=== PATIENT | male | born 1955 | race Two or more races ===

== ENCOUNTER 2020-08-02 07:14 | Outpatient (REF) | payer OTHER, SELFPAY ==
[2020-08-02 07:51] LABS: MANUAL DIFF FLAG NO
[2020-08-02 07:55] LABS: Basophils Percent Auto 0.6 % (0-2); Eosinophils Absolute Auto 0.3 X10*3/uL (0.0-0.4); Eosinophils Percent Auto 4.9 % (0-4); Hematocrit 46.6 % (42-52); Hemoglobin 15.1 g/dl (14.0-18.0); Imm Gran Abs Auto 0.03 X10*3/uL (0.00-0.03); Imm Gran Pct Auto 0.5 % (0.0-0.4); Lymphocytes Absolute Auto 2.4 X10*3/uL (1.2-4.9); Lymphocytes Percent Auto 37.8 % (20-40); Mean Corpuscular HGB Conc 32.4 g/dl (31.0-36.0); Mean Corpuscular Hemoglobin 29.7 pg (27.0-33.0); Mean Corpuscular Volume 91.6 fL (80-98); Mean Platelet Volume 10.1 fL (9.4-12.4); Monocytes Absolute Auto 0.8 X10*3/uL (0.1-1.2); Monocytes Percent Auto 11.9 % (2-11); Neutrophils Absolute Auto 2.8 X10*3/uL (2.0-8.3); Neutrophils Percent Auto 44.3 % (45-73); Platelet Count 232 X10*3/uL (160-400); Red Blood Count 5.09 X10*6/uL (4.60-5.80); White Blood Count 6.3 X10*3/uL (4.8-10.8)
[2020-08-02 08:17] LABS: Alanine Aminotransferase 65 U/L (0-40); Albumin Level 4.6 g/dL (3.5-5.0); Alkaline Phosphatase 66 U/L (39-117); Aspartate Amino Transferase 36 U/L (5-37); Bilirubin Direct 0.2 mg/dL (0.0-0.5); Bilirubin Total 0.6 mg/dL (0.0-1.0); Cholesterol 155 mg/dL; HDL Cholesterol 36 mg/dL; LDL Cholesterol Calculated 92 mg/dl; Total Protein 7.2 g/dL (6.5-8.0); Triglycerides 137 mg/dL
[2020-08-02 13:45] LABS: Anion Gap 13 (12-20); Blood Urea Nitrogen 17 mg/dL (9-16); Carbon Dioxide 31 mmol/L (22-29); Chloride 101 mmol/L (96-108); Estimated Glomerular Filt Rate > 60; Glucose Fasting 99 mg/dL (60-99); Potassium 5.4 mmol/l (3.3-5.1); Sodium 140 mmol/L (135-145)
[2020-08-02 13:53] LABS: Calcium 9.1 mg/dL (8.4-10.2)
== END 2020-08-02 07:15 | disposition home or self-care (01) ==
LOC: HO.LAB 07:14
PROVIDERS: PCP Internal Medicine; Visit Provider Nurse Practitioner Family
DX: J00 Acute nasopharyngitis [common cold] (principal); K76.0 Fatty (change of) liver, not elsewhere classified; E78.00 Pure hypercholesterolemia, unspecified
CPT/HCPCS: 36415; 80048; 80061; 80076; 85025

== ENCOUNTER 2020-08-23 07:08 | Outpatient (REF) | payer OTHER, SELFPAY ==
[2020-08-23 07:27] LABS: MANUAL DIFF FLAG NO
[2020-08-23 07:30] LABS: Basophils Percent Auto 0.7 % (0-2); Eosinophils Absolute Auto 0.2 X10*3/uL (0.0-0.4); Hematocrit 45.4 % (42-52); Hemoglobin 15.2 g/dl (14.0-18.0); Imm Gran Abs Auto 0.03 X10*3/uL (0.00-0.03); Imm Gran Pct Auto 0.5 % (0.0-0.4); Lymphocytes Percent Auto 32.7 % (20-40); Mean Corpuscular HGB Conc 33.5 g/dl (31.0-36.0); Mean Corpuscular Hemoglobin 30.4 pg (27.0-33.0); Mean Corpuscular Volume 90.8 fL (80-98); Mean Platelet Volume 9.9 fL (9.4-12.4); Monocytes Absolute Auto 0.6 X10*3/uL (0.1-1.2); Monocytes Percent Auto 10.4 % (2-11); Neutrophils Absolute Auto 3.1 X10*3/uL (2.0-8.3); Neutrophils Percent Auto 51.7 % (45-73); Platelet Count 240 X10*3/uL (160-400); Red Cell Distribution Width 12.9 % (11.0-16.0)
[2020-08-23 07:51] LABS: Alanine Aminotransferase 61 U/L (0-40); Albumin Level 4.6 g/dL (3.5-5.0); Alkaline Phosphatase 64 U/L (39-117); Anion Gap 13 (12-20); Aspartate Amino Transferase 38 U/L (5-37); Bilirubin Direct 0.4 mg/dL (0.0-0.5); Bilirubin Total 1.1 mg/dL (0.0-1.0); Blood Urea Nitrogen 21 mg/dL (9-16); Calcium 8.9 mg/dL (8.4-10.2); Carbon Dioxide 28 mmol/L (22-29); Chloride 104 mmol/L (96-108); Estimated Glomerular Filt Rate > 60; Glucose Fasting 96 mg/dL (60-99); Potassium 4.2 mmol/l (3.3-5.1); Sodium 141 mmol/L (135-145); Total Protein 7.3 g/dL (6.5-8.0)
== END 2020-08-23 07:09 | disposition home or self-care (01) ==
LOC: HO.LAB 07:08
PROVIDERS: PCP Internal Medicine; Visit Provider Nurse Practitioner Family
DX: J00 Acute nasopharyngitis [common cold] (principal); E78.00 Pure hypercholesterolemia, unspecified; K76.0 Fatty (change of) liver, not elsewhere classified
CPT/HCPCS: 36415; 80048; 80076; 85025

== ENCOUNTER → 2020-10-16 11:41 | Outpatient (BNVA) | payer OTHER, SELFPAY | PROVIDERS: PCP Internal Medicine; Visit Provider Physician Assistant | DX: Z12.11 Encounter for screening for malignant neoplasm of colon (principal) | CPT/HCPCS: Q3014 ==

== ENCOUNTER 2020-12-11 08:04 | Day surgery (SDC) | payer OTHER, SELFPAY ==
[2020-12-05 10:05] VITALS: BMI 34.1
[2020-12-11 09:41] VITALS: BP 141/82; PULSE 55; RESP 16; TEMP 36.4; O2SAT 97
--- NOTE | 2020-12-11 09:54 | HO.ANESPROP2 ---
HPI - Anesthesia Eval Consult details Narrative: 65 year old male patient for colonoscopy PMFSH Active Problems Active Problems: All Active Problems (Updated 10/16/20 @ 12:29 by Adrienne yNe PA-C) Encounter for screening colonoscopy (Acute) Elevated LFTs (Acute) Lumbar degenerative disc disease (Acute) Insomnia (Acute) Obesity (BMI 30-39.9) (Acute) Fatty liver (Acute) High cholesterol (Acute) Past Medical History Medical History Elevated LFTs Fatty liver High cholesterol Insomnia Lumbar degenerative disc disease Obesity (BMI 30-39.9) Family History Family History Father No problems noted. Mother Uterine cancer Other Family history non-contributory Family history of problems with anesthesia: No Surgical History Surgical History H/O colonoscopy Hx of circumcision History of Problems with Anesthesia: No Social History Social History Household Members: Spouse Alcohol intake: current Alcohol intake frequency: a few times a month Smoking Status: Former smoker Advance Directives Information Provided: No Meds Allergies Allergy/AdvReac Type Severity Reaction Status Date / Time No Known Allergies Allergy Mild NKA Verified 09/10/20 11:32 Active Medications: Current Medications Generic Name Dose Route Start Last Admin Trade Name Freq PRN Reason Stop Dose Admin Lactated Ringer's 1,000 mls @ 100 mls/hr 12/11/20 10:00 Lr IVCONT .Q10H NICHO Exam Exam Date and Time: December 11, 2020 0954 Height,Weight and Vital Signs: Height 5 ft 7 in Weight 98.883 kg Last Vital Signs Temp 97.5 F 12/11/20 09:41 Pulse 55 12/11/20 09:41 Resp 16 12/11/20 09:41 BP 141/82 H 12/11/20 09:41 Pulse Ox 97 12/11/20 09:41 Airway Mallampati Class: II TM Dist: >3cm Neck ROM: Full Denture: Upper Loose/Missing/Broken Teeth: Yes (Bottom front) Heart: RRR Lungs: CTAB Assessment and Plan Assessment Anesthesia Assessment: Anesthesia Plan Discussed and Chart Reviewed Final Anesthetic Review NPO: Yes ASA Class: II Final Preanesthetic Review: No Changes in Pt Med Stat, Meds/Allgs Chart Reviewed, Consent Obtained/Reviewed and Anes Risks/Benef Reviewed Patient Risk: Low Procedure Risk: Low Assessment/Block/Sedation in SS: Assess/Block/Sedation-SS Anesthetic Plan Anesthetic Plan: MAC: Disposition: Standard PACU
[2020-12-11] MEDS: Lactated Ringers 1,000 ML 100 ML IVCONT (10:05)
--- NOTE | 2020-12-11 10:21 | PC.NURSE ---
Patient ate solid food yesterday until 11 am, Dr Hoff notified. Fleets enema administered 10:15 am, returns clear.
--- NOTE | 2020-12-11 10:40 | MHC.SHP ---
Pre-Procedural Eval Section B Chief Complaint: screening Relevant Family History (Specify if Yes): No Relevant Social History: None Present Medications: see Short Stay Collaborative assessment Medical History: Significant History (Elevated LFTs Fatty liver High cholesterol Insomnia Lumbar degenerative disc disease Obesity (BMI 30-39.9)) History of Previous Operations: No relevant previous surgery Allergies: Allergies Allergy/AdvReac Type Severity Reaction Status Date / Time No Known Allergies Allergy Mild NKA Verified 09/10/20 11:32 Review of Systems Sugical H&P ROS: Negative: Constitution, Cardiovascular, Respiratory, Neurological, Psychiatric, Hem-Onc, Allergic/Immunologic, Gastrointestinal, Genitourinary, Musculoskeletal, Integumentary, Endocrine and Eyes/Ears/Nose/Throat Exam Surgical H&P Exam: Normal: HEENT, Normal: Heart, Normal: Lungs, Normal: Extremities, Normal: Abdomen, Normal: Skin and Normal: Neurological Plan Diagnosis/Plan: Unchanged I have reviewed the history and physical and performed a pertinent physical examination on my patient. No changes have occurred unless specified.
--- NOTE | 2020-12-11 10:46 | PM.OP ---
Brief Operative Note Date of Service: 12/11/20 Pre-op diagnosis: colon screen Post-op diagnosis: same Procedure: see op note Surgeon: Сергей Hoff MD Anesthesia: MAC Estimated blood loss (mL): 0 Condition: stable Disposition: PACU
--- NOTE | 2020-12-11 10:47 | W.PM.OPN ---
Operative Note Operative Note Date of Service: 12/11/20 Narrative: Operative Information Procedure Description: Colonoscopy COLONOSCOPY Instrument: Olympus variable stiffness pediatric scope 190L Colonoscopy Monitoring: Vital signs and clinical assessment, continuous EKG monitoring, Pulse oximetry, Carbon Dioxide monitoring and blood pressure monitoring were done throughout the procedure. Colon withdrawal time was 11 minutes. Procedure: The patient was placed in the left lateral decubitis position and pre-procedure medications were administered. After a digital rectal examination of the ano-rectum, the video colonoscope was inserted into the rectum and advanced through the colon to the cecum/TI. The colonoscope was slowly withdrawn in a retrograde panoramic fashion and the colon mucosa was carefully examined including a retroflexed view of the rectum. Findings and interventions are described below. Procedure Difficulty: easy Findings: Terminal Ileum-not intubated Cecum: 6-8 mm sessile polyp removed with forceps,otherwise normal Ascending Colon: normal Transverse Colon -normal Descending Colon:normal Sigmoid Colon: scattered diverticulosis Rectum: Retroflexion with small to moderate sized internal hemorrhoids, grade II Anorectum - internal hemorrhoids seen at anal verge Colon preparation: Earlimart Bowel Preparation Scale Right colon; 3 Transverse colon: 3 Left colon; 2 (0 = Unprepared colon segment with mucosa not seen due to solid stool that cannot be cleared. 1 = Portion of mucosa of the colon segment seen, but other areas of the colon segment not well seen due to staining, residual stool and/or opaque liquid. 2 = Minor amount of residual staining, small fragments of stool and/or opaque liquid, but mucosa of colon segment seen well. 3 = Entire mucosa of colon segment seen well with no residual staining, small fragments of stool or opaque liquid) Impression and Post Procedure Diagnosis: polyp internal hemorrhoids diverticular disease Plan: High fiber diet leaflet Avoid straining at stool, epsom salts and sitz bath, anusol supps or cream Repeat Colonoscopy in 5-7 years if adenoma polyp, 10 yrs if benign or earlier if clinically indicated Above findings were reviewed with the patient and relevant handouts were provided if indicated.
[2020-12-11 11:17] VITALS: BP 107/78; PULSE 63; RESP 18; TEMP 36.8; O2SAT 99
[2020-12-11 11:34] VITALS: BP 116/75; PULSE 52; RESP 16; O2SAT 98
== END 2020-12-11 12:16 | disposition home or self-care (01) ==
PROVIDERS: PCP Internal Medicine; Visit Provider Internal Medicine Gastroenterology
PROC: 0DJD8ZZ Inspection of Lower Intestinal Tract, Via Natural or Artificial Opening Endoscopic (ICD-10-PCS; CPT 45378; principal; 2020-12-11 10:20)
DX: Z12.11 Encounter for screening for malignant neoplasm of colon (principal); K57.30 Diverticulosis of large intestine without perforation or abscess without bleeding; K63.5 Polyp of colon; K64.1 Second degree hemorrhoids; K76.0 Fatty (change of) liver, not elsewhere classified; Z79.899 Other long term (current) drug therapy; Z87.891 Personal history of nicotine dependence
CPT/HCPCS: 45380; 88305

== ENCOUNTER → 2021-01-01 09:55 | Outpatient (BNVA) | payer OTHER, SELFPAY | PROVIDERS: PCP Internal Medicine; Visit Provider Physician Assistant | DX: K64.9 Unspecified hemorrhoids (principal); K63.5 Polyp of colon | CPT/HCPCS: Q3014 ==

== ENCOUNTER 2021-03-14 07:18 | Outpatient (REF) | payer OTHER, SELFPAY ==
--- NOTE | ~2021-03-14 | XR_ITS ---
EXAMINATION: XR LUMBOSACRAL SPINE CLINICAL INFORMATION: Low back pain. COMPARISON: None TECHNIQUE: Three views of the lumbosacral spine. FINDINGS: There is maintained lumbar lordosis. The vertebral heights and alignment is normal. There is loss of L4-L5 disc height. Rest the disc heights are normal. No visible acute fracture, dislocation or lytic process seen. The paravertebral soft tissues are normal. XR/XR lumbar spine 2-3V IMPRESSION: Mild degenerative disc changes L5-S1 and L4-L5 disc levels.
[2021-03-14 08:47] LABS: Alanine Aminotransferase 68 U/L (0-40); Albumin Level 4.4 g/dL (3.5-5.0); Alkaline Phosphatase 67 U/L (39-117); Anion Gap 11 (12-20); Aspartate Amino Transferase 39 U/L (5-37); Bilirubin Direct 0.4 mg/dL (0.0-0.5); Bilirubin Total 1.2 mg/dL (0.0-1.0); Blood Urea Nitrogen 17 mg/dL (9-16); Calcium 9.1 mg/dL (8.4-10.2); Carbon Dioxide 29 mmol/L (22-29); Chloride 104 mmol/L (96-108); Estimated Glomerular Filt Rate > 60; Glucose Fasting 96 mg/dL (60-99); Potassium 4.4 mmol/L (3.3-5.1); Sodium 140 mmol/L (135-145)
== END 2021-03-14 07:19 | disposition home or self-care (01) ==
LOC: HO.XRAY 07:18
PROVIDERS: PCP Internal Medicine; Visit Provider Internal Medicine
DX: M54.5 Low back pain (principal); M51.36 Other intervertebral disc degeneration, lumbar region; K76.0 Fatty (change of) liver, not elsewhere classified; R79.89 Other specified abnormal findings of blood chemistry
CPT/HCPCS: 36415; 72100; 80048; 80053; 80076; 82248

== ENCOUNTER → 2021-04-07 14:48 | Outpatient (BNVA) | payer OTHER, SELFPAY | PROVIDERS: PCP Internal Medicine; Visit Provider Nurse Practitioner Family | DX: M51.36 Other intervertebral disc degeneration, lumbar region (principal) | CPT/HCPCS: 99202 ==

== ENCOUNTER 2021-04-23 13:02 | Outpatient (REF) | payer OTHER, SELFPAY ==
--- NOTE | ~2021-04-23 | MR_ITS ---
EXAMINATION: MR LUMBAR SPINE WITHOUT CONTRAST CLINICAL INFORMATION: Right leg radiculopathy and low back pain. COMPARISON: X-ray lumbar spine from 03/14/2021 TECHNIQUE: MRI of the lumbar spine was obtained using routine sequences without contrast. FINDINGS: VERTEBRAL BODIES AND PARASPINAL STRUCTURES: The marrow signal is within normal limits. There is a retrosubluxation and severe disc space narrowing with chronic fatty marrow degenerative endplate changes at the L5-S1 level. Slight retrosubluxation at the L4-L5 level also evident. There are no compression fractures or anterior subluxations. The paraspinal soft tissues and imaged bony pelvis appear normal. CONUS MEDULLARIS AND CAUDA EQUINA: Normal, terminating at the level of L1. No lower cord signal abnormality is seen. The cauda equina nerve roots are normal. SPINAL LEVELS: L1-L2 and L2-L3: Well-hydrated normal appearance of the discs without central canal stenosis or foraminal narrowing. L3-L4: Mild retrosubluxation and disc bulge with a broad-based left foraminal disc protrusion contributing to moderate encroachment without nerve root impingement. No central canal stenosis. L4-L5: Mild loss of disc height and shallow right paracentral disc protrusion mildly impressing upon the ventral thecal sac. Additional left foraminal/extraforaminal disc protrusion with an underlying annular fissure mildly impressing upon the left L4 nerve root with mild encroachment. Moderate right foraminal narrowing. No central canal stenosis. L5-S1: Retrosubluxation and severe loss of disc height with a diffuse disc bulge, endplate spurring, and facet arthropathy. No central canal stenosis. [id number] bilateral foraminal narrowing. MR/MR lumbar spine wo con IMPRESSION: Severe spondylosis at the L5-S1 level with [id number] bilateral foraminal narrowing. No central canal stenosis or focal disc protrusion. Left foraminal disc protrusion at the L3-L4 level with moderate encroachment but no visible nerve root impingement. Broad-based left foraminal/extraforaminal disc protrusion at the L4-L5 level mildly impressing upon the left L4 nerve root. Moderate right foraminal narrowing.
== END 2021-04-23 13:03 | disposition home or self-care (01) ==
LOC: HO.MRI 13:02
PROVIDERS: Visit Provider Nurse Practitioner Family
DX: M51.36 Other intervertebral disc degeneration, lumbar region (principal)
CPT/HCPCS: 72148

== ENCOUNTER → 2021-08-07 11:31 | Outpatient (BNVA) | payer OTHER, SELFPAY | PROVIDERS: PCP Internal Medicine; Visit Provider Nurse Practitioner Family | DX: M51.36 Other intervertebral disc degeneration, lumbar region (principal); M47.819 Spondylosis without myelopathy or radiculopathy, site unspecified | CPT/HCPCS: 99212 ==

== ENCOUNTER 2021-09-12 07:12 | Outpatient (REF) | payer OTHER, SELFPAY ==
[2021-09-12 07:20] LABS: MANUAL DIFF FLAG NO
[2021-09-12 09:38] LABS: Basophils Percent Auto 0.6 % (0-2); Eosinophils Absolute Auto 0.3 X10*3/uL (0.0-0.4); Eosinophils Percent Auto 4.2 % (0-4); Hematocrit 46.3 % (42.0-52.0); Hemoglobin 14.9 g/dl (14.0-18.0); Imm Gran Abs Auto 0.03 X10*3/uL (0.00-0.03); Imm Gran Pct Auto 0.5 % (0.0-0.4); Lymphocytes Absolute Auto 2.1 X10*3/uL (1.2-4.9); Lymphocytes Percent Auto 32.9 % (20-40); Mean Corpuscular HGB Conc 32.2 g/dl (31.0-36.0); Mean Corpuscular Hemoglobin 29.8 pg (27.0-33.0); Mean Corpuscular Volume 92.6 fL (80.0-98.0); Mean Platelet Volume 10.6 fL (9.4-12.4); Monocytes Absolute Auto 0.7 X10*3/uL (0.1-1.2); Monocytes Percent Auto 10.9 % (2-11); Neutrophils Absolute Auto 3.2 x10*3/uL (2.0-8.3); Neutrophils Percent Auto 50.9 % (45-73); Platelet Count 242 X10*3/uL (160-400); Red Cell Distribution Width 13.1 % (11.0-16.0); White Blood Count 6.2 X10*3/uL (4.8-10.8)
[2021-09-12 10:07] LABS: Alanine Aminotransferase 58 U/L (0-40); Albumin Level 4.6 g/dL (3.5-5.0); Alkaline Phosphatase 76 U/L (39-117); Anion Gap 15 (12-20); Aspartate Amino Transferase 35 U/L (5-37); Bilirubin Total 0.9 mg/dL (0.0-1.0); Blood Urea Nitrogen 18 mg/dL (9-16); Calcium 9.3 mg/dL (8.4-10.2); Carbon Dioxide 25 mmol/L (22-29); Chloride 104 mmol/L (96-108); Cholesterol 169 mg/dL; Estimated Glomerular Filt Rate > 60; Glucose Fasting 93 mg/dL (60-99); HDL Cholesterol 33 mg/dL; LDL Cholesterol Calculated 109 mg/dl; Potassium 4.1 mmol/L (3.3-5.1); Sodium 140 mmol/L (135-145); Total Protein 7.5 g/dL (6.5-8.0); Triglycerides 138 mg/dL
[2021-09-12 10:12] LABS: Prostate Specific Antigen 0.33 ng/mL (<0.05-4.0); Vitamin D 25-OH Total 27.3 ng/mL (>30)
[2021-09-12 11:16] LABS: Appearance Urine CLEAR; Color Urine YELLOW; Glucose Urine UA NEG (NEG); Leukocyte Esterase Urine NEG (NEG); Nitrite Urine NEG (NEG); Specific Gravity - Urine 1.025 (1.005-1.025); Urine Blood NEG (NEG); Urine Ketones NEG (NEG); Urine Protein TRACE MG/DL (NEG-TRACE)
[2021-09-16 14:47] LABS: Testosterone, Free 71.2 pg/mL (35.0-155.0); Testosterone, Total 584 ng/dL (250-1100)
== END 2021-09-12 07:13 | disposition home or self-care (01) ==
LOC: HO.LAB 07:12
PROVIDERS: PCP Internal Medicine; Visit Provider Internal Medicine
DX: Z00.00 Encounter for general adult medical examination without abnormal findings (principal); Z12.5 Encounter for screening for malignant neoplasm of prostate; I10 Essential (primary) hypertension; N40.0 Benign prostatic hyperplasia without lower urinary tract symptoms; E55.9 Vitamin D deficiency, unspecified; E78.00 Pure hypercholesterolemia, unspecified; N52.9 Male erectile dysfunction, unspecified
CPT/HCPCS: 36415; 80053; 80061; 81003; 82306; 84153; 84402; 84403; 84443; 85025

== ENCOUNTER → 2021-10-21 13:17 | Outpatient (BNVA) | payer OTHER, SELFPAY | PROVIDERS: PCP Internal Medicine; Visit Provider Nurse Practitioner Family ==

== ENCOUNTER 2021-11-10 08:26 | Emergency (ER) | payer OTHER, SELFPAY ==
[2021-11-10 08:33] VITALS: BP 150/89; PULSE 59; RESP 18; TEMP 36.6; O2SAT 98; BMI 32.8
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
== END 2021-11-10 10:28 | disposition home or self-care (01) ==
PROVIDERS: Emergency Provider Emergency Medicine Emergency Medical Services; PCP Internal Medicine
DX: S13.4XXA Sprain of ligaments of cervical spine, initial encounter (principal); S33.5XXA Sprain of ligaments of lumbar spine, initial encounter; V43.52XA Car driver injured in collision with other type car in traffic accident, initial encounter; Y93.89 Activity, other specified; Y92.415 Exit ramp or entrance ramp of street or highway as the place of occurrence of the external cause; Y99.9 Unspecified external cause status
CPT/HCPCS: 99283

== ENCOUNTER 2022-04-14 06:06 | Outpatient (REF) | payer OTHER, SELFPAY ==
--- NOTE | ~2022-04-14 | FL_ITS ---
INDICATION: Intraoperative fluoroscopy. FLUOROSCOPY: Fluoroscopy Time: 0.4 minutes Dose: 20.2 mGy Images saved: 3 FINDINGS: Multiple intraoperative fluoroscopic images are submitted during procedure involving the lumbar spine. Correlation with operative report. Evaluation is limited secondary to fluoroscopic technique. IMPRESSION: Intra-operative fluoroscopic imaging provided by radiology during procedure involving the lumbar spine. Please refer to operative note for further information.
== END 2022-04-14 06:07 | disposition home or self-care (01) ==
LOC: HO.RADIR 06:06
PROVIDERS: Visit Provider Internal Medicine
DX: M47.27 Other spondylosis with radiculopathy, lumbosacral region (principal)
CPT/HCPCS: 64483; J1100; Q9967

== ENCOUNTER → 2022-05-12 09:51 | Outpatient (BNVA) | payer OTHER, SELFPAY | PROVIDERS: PCP Internal Medicine; Visit Provider Nurse Practitioner Family | DX: M51.36 Other intervertebral disc degeneration, lumbar region (principal); M47.27 Other spondylosis with radiculopathy, lumbosacral region; M62.838 Other muscle spasm; G57.10 Meralgia paresthetica, unspecified lower limb | CPT/HCPCS: 99212 ==

== ENCOUNTER → 2022-08-16 10:18 | Outpatient (BNVA) | payer MEDICARE, MEDICAID, SELFPAY | PROVIDERS: PCP Internal Medicine; Visit Provider Nurse Practitioner Family | DX: G57.10 Meralgia paresthetica, unspecified lower limb (principal); M62.838 Other muscle spasm; M47.819 Spondylosis without myelopathy or radiculopathy, site unspecified; M51.36 Other intervertebral disc degeneration, lumbar region; E66.9 Obesity, unspecified; Z68.34 Body mass index [BMI] 34.0-34.9, adult | CPT/HCPCS: 99212 ==

== ENCOUNTER 2022-10-06 06:07 | Outpatient (REF) | payer MEDICARE, SELFPAY | END 2022-10-06 06:08 | disposition home or self-care (01) | LOC: CF 06:07 | PROVIDERS: Visit Provider Internal Medicine | DX: G57.10 Meralgia paresthetica, unspecified lower limb (principal) | CPT/HCPCS: 64447; J1040; J3301 ==

== ENCOUNTER → 2022-11-04 08:54 | Outpatient (BNVA) | payer MEDICARE, OTHER, SELFPAY | PROVIDERS: PCP Internal Medicine; Visit Provider Nurse Practitioner Family | DX: M51.36 Other intervertebral disc degeneration, lumbar region (principal); M62.838 Other muscle spasm; M54.16 Radiculopathy, lumbar region; G57.10 Meralgia paresthetica, unspecified lower limb | CPT/HCPCS: 99202 ==

== ENCOUNTER 2022-12-01 06:04 | Outpatient (REF) | payer MEDICARE, OTHER, SELFPAY ==
--- NOTE | ~2022-12-01 | FL_ITS ---
EXAMINATION: XR FLUOROSCOPY WITH IMAGES CLINICAL INFORMATION: Radiculopathy lumbar region. COMPARISON: 04/14/2022 TECHNIQUE: Fluoroscopy Supervised By: Dr. Parvez York. Fluoroscopy Time: 0.3 minutes. Cumulative Dose: 6.43 mGy. DAP: 0.663 Gycm2. Images: 3. FINDINGS: Imaging demonstrates a needle about the right side of what appears to be L4 just inferior to the pedicle. FL/FL guidance in treatment room IMPRESSION: Intraoperative fluoroscopy for pain management procedure.
== END 2022-12-01 06:05 | disposition home or self-care (01) ==
LOC: CF 06:04
PROVIDERS: Visit Provider Internal Medicine
DX: M54.16 Radiculopathy, lumbar region (principal)
CPT/HCPCS: 64483; J1100

== ENCOUNTER 2023-03-19 07:08 | Outpatient (REF) | payer MEDICARE, OTHER, SELFPAY ==
--- NOTE | ~2023-03-19 | XR_ITS ---
EXAMINATION: XR KNEE, RIGHT CLINICAL INFORMATION: Pain of 2 months' duration, without injury. COMPARISON: None available. TECHNIQUE: AP, lateral, tunnel, and sunrise views of the right knee. FINDINGS: Bony alignment and mineralization are normal. The lateral, medial and patellofemoral joint space are well-maintained. There is chondrocalcinosis. No fracture, dislocation or significant joint effusion is seen. This no foreign body. XR/XR knee RT 4V IMPRESSION: 1. No fracture, dislocation or significant right knee joint effusion is seen. 2. There is chondrocalcinosis, which can be associated with CPPD.
== END 2023-03-19 07:09 | disposition home or self-care (01) ==
LOC: HO.XRAY 07:08
PROVIDERS: PCP Internal Medicine; Visit Provider Internal Medicine
DX: M25.561 Pain in right knee (principal)
CPT/HCPCS: 73564

== ENCOUNTER 2023-09-20 09:54 | Outpatient (AMB) | payer MEDICARE, SELFPAY ==
[2023-09-20 10:03] VITALS: BP 134/82; PULSE 60; O2SAT 97; BMI 34.8
--- NOTE | 2023-09-20 10:04 | A.OFFVIS_ITS ---
Intake Vital Signs 09/20/23 10:03 Height 5 ft 7 in Weight 222 lb 8 oz BMI 34.8 BP 134/82 Blood Pressure Location Lt brachial Position Sitting Pulse 60 Pulse Source Pulse Oximeter Pulse Oximetry (%) 97 Oxygen Delivery Method Room Air Intake Visit Reasons: Kym [id number] Iuss Analyst Required: No Accompanied by: Self / Same As Patient Allergies No Known Allergies Allergy (Mild, Verified 01/25/24 10:49) NKA Medication List - Last Reconciled 09/20/23 by John Youngblood MD fluticasone propionate 50 mcg/actuation 2 sprays intranasal DAILY PRN 30 days Do you need a note to return to daycare/school/sports/work: No HPI [facility] G0439 HPI Details Patient comes in today for his Medicare Annual Wellness Exam and follow up visit States that he has been experiencing a recurrent tingling sensation over the anterior aspect of his right thigh for the past 4 months Notes that the symptoms tend to occur especially after he has been standing up for too long Notes that his left thigh is also starting to experience the same symptoms recently He denies any pain in his right hip or right knee lately Also relates that he has been sick twice in the past month, with increased cough and congestion, most recently about 2 weeks ago States that his respiratory symptoms have cleared up gradually since and he presently has no respiratory complaints - denies any cough and congestion or SOB at this time He still has recurrent headaches - states that he ran out of his Rx recently He denies any dizziness; denies any fever or sore throat Denies any chest pain No nausea/vomiting, no abdominal pain No change in bowel habits noted He needs his Fluticasone nasal spray Rx refilled ------- IPPE/AWV: c/o of Annual Wellness Visit, subsequent visit. Medical / Social History Reviewed Past Medical History Yes . [place] of Care / Care Team list updated Yes . Surgical/Hospitalization History Yes . Current Medications (including OTC and supplements) Yes . Family History Yes . Tobacco Control form Yes . AUDIT-C (Alcohol use) form Yes . Illicit drug use in Social History Yes . Current diagnosis of depression? No Appropriate PHQ2/PHQ9 completed Yes . Data entered by Customer Services Coordinator and reviewed by provider Home Safety Throw rugs? No Grab bars? No Raised toilet seats? No Working smoke detectors? Yes Working carbon monoxide detectors? Yes Data entered by Customer Services Coordinator and reviewed by provider Activities of Daily Living (ADLs) Difficulty bathing or showering? No Difficulty dressing? No Difficulty using the toilet? No Difficulty getting in and out of bed? No Difficulty walking? No Receives help from another person with any of the above tasks? No Instrumental Activities of Daily Living (IADLs) Uses the telephone without help Gets to places out of walking distance without help Goes shopping for groceries without help Prepares own meals without help Does own minor home maintenance without help Does own laundry without help Does own housework without help Manages own money without help Currently takes medications? Yes Takes medication without help End-of-Life Planning Discussed advance directive Yes Advance directive on file Discussed wishes expressed in advance directive agreed to following patient's wishes Fall Risk: Fall History Have you had any falls with injury in the past year? No . Have you had two or more falls in the past year? No . Fall Risk Assessment: No falls in the past year . HRA filled out by the patient, reviewed by Provider and scanned. [facility] Medical History Vitamin D deficiency Mixed hyperlipidemia Paresthesia of both lower extremities GERD without esophagitis Erectile dysfunction Hemorrhoids Elevated LFTs Lumbar degenerative disc disease Insomnia Obesity (BMI 30-39.9) Fatty liver Surgical History H/O colonoscopy Hx of circumcision Family History Father No problems noted. 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 Cognitive needs: No Hearing needs: No Vision needs: No Questionnaire Medicare Wellness Checkup [age] What gender do you identify with?: male During the past 4 weeks, how much have you been bothered by emotional problems such as feeling anxious, depressed, irritable, sad or downhearted, and blue?: not at all During the past 4 weeks, has your physical & emotional health limited your social activities with family, friends, neighbors, or groups?: not at all During the past 4 weeks, how much bodily pain have you generally had?: very mild pain During the past 4 weeks, was someone available to help you if you needed & wanted help?: no, not at all During the past 4 weeks, what was the hardest physical activity you could do for at least 2 minutes?: moderate Can you get to places out of walking distance without help? (For eg., can you travel alone on buses, taxis or drive your car?): Yes Can you go shopping for groceries or clothes without someone's help?: Yes Can you prepare your own meals?: Yes Can you do your housework without help?: Yes Because of any health problems, do you need the help of another person with your personal care needs such as eating, bathing, dressing or getting around the house?: No Can you handle your own money without help?: Yes During the past 4 weeks, how would you rate your health in general?: very good During the past 4 weeks how have things been going for you?: pretty well Are you having difficulties driving your car?: no Do you always fasten your seat belt when you are in a car?: yes, usually During past 4 weeks, have you been bothered by the following: never: Falling or dizzy when standing up, Sexual problems?, Trouble eating well? and Problems using the telephone? and seldom: Teeth or denture problems? and Tiredness or fatigue? Have you fallen 2 or more times in the past year?: No Are you afraid of falling?: No Are you a smoker?: no During the past 4 weeks, how many drinks of wine, beer, or other alcoholic beverages did you have?: 1 drink or less per week Do you exercise for about 20 minutes 3 or more times a week?: no, I usually do not exercise this much Have you been given information to help with the following?: yes: Keeping track of your medications? and no: Hazards in your house that might hurt you? How often do you have trouble taking medicines the way you have been told to take them?: I always take medicine as prescribed How confident are you that you can control & manage most of your health problems?: very confident What is your race?: or origin or descent Mini Mental State Exam (MMSE) Orientation What is the (year) (season) (date) (day) (month)?: year, season, date, day and month Where are we (state) (county) (town or city) (hospital) (floor)?: state, county, town or city, hospital/clinic and floor Score Score: 10 Activity of Daily Living Bathing - sponge bath, tub bath or shower: receives no assistance (gets in/out by self, if usual bathing means Dressing - getting clothes from closets & drawers, including inner/outer garments & fasteners.: gets clothes & gets completely dressed without help Toileting - going to the 'toilet room' for urine/bowel elimination & cleaning self/arranging clothes: goes to toilet room, cleans self, arranges clothes without help Transfer: moves in & out of bed and chair without help (may use support object) Continence: controls urination/bowel movements completely by self Feeding: feeds self without help Total Score: 0 Information obtained from: patient Using telephone: independent Traveling: independent Shopping: independent Preparing meals: independent Housework: independent Taking medicine: independent Managing money: independent PHQ-9 Over the last 2 weeks, how often have you been bothered by any of the following problems? 1. Little interest or pleasure in doing things: not at all 2. Feeling down, depressed, or hopeless: not at all 3. Trouble falling or staying asleep, or sleeping too much: several days 4. Feeling tired or having little energy: several days 5. Poor appetite or overeating: not at all 6. Feeling bad about yourself - or that you are a failure or have let yourself o r your family down: not at all 7. Trouble concentrating on things, such as reading the newspaper or watching television: not at all 8. Moving or speaking so slowly that other people could have noticed. Or the opposite - being so fidgety or restless that you have been moving around a lot more than usual: not at all 9. Thoughts that you would be better off or of hurting yourself in some way: not at all Total score: 2 Depression Screening Interpretation: Negative Depression Screening Done: Yes 11492 - PHQ-9 Billing: Yes Source: Developed by Drs. Tyree Zhu, Yumiko Holden, Victor Hugo millan nd colleagues, with an educational ignacia from [employer]. PHQ-2/PHQ-9 PHQ-2 Over the last 2 weeks, how often have you been bothered by any of the following problems? 1. Little interest or pleasure in doing things: not at all 2. Feeling down, depressed, or hopeless: not at all Total score: 0 If score is 3 or greater, continue 3. Trouble falling or staying asleep, or sleeping too much: several days 4. Feeling tired or having little energy: several days 5. Poor appetite or overeating: not at all 6. Feeling bad about yourself - or that you are a failure or have let yourself or your family down: not at all 7. Trouble concentrating on things, such as reading the newspaper or watching television: not at all 8. Moving or speaking so slowly that other people could have noticed. Or the opposite - being so fidgety or restless that you have been moving around a lot more than usual: not at all 9. Thoughts that you would be better off or of hurting yourself in some way: not at all Total score: 2 0-4 None-Minimal, 5-9 Mild, 10-14 Moderate, 15-19 Moderately Severe, 20-27 Severe Source: Developed by Drs. Tyree Zhu, Yumiko Holden, Victor Hugo Rodas and colleagues, with an educational ignacia from [employer]. Thrive Questionnaire Date Thrive assessed: 09/20/23 I am a: Patient What is your living situation today?: I have a steady place to live Within the past 12 months, did the food you bought not last and you didn't have the money to get more?: Never true Within the past 12 months, did you worry whether your food would run out before you got money to buy more?: Never true Do you have trouble paying for medicines?: No Do you have trouble getting transportation to medical appointments?: No Do you have trouble paying your heating and electricity bill?: No Do you have trouble taking care of your child, family member or friend?: No Do you have trouble with day-to-day activities such as bathing, preparing meals, shopping, managing finances, etc.?: No Are you currently unemployed and looking for a job?: No Are you interested in more education?: No Please select the resources that you would like help with: None Currently or been in a relationship where the following occur: no concerns r eported YARIEL-7 AMB Questionnaire YARIEL-7 Date YARIEL - 7 assessed: 09/20/23 Feeling nervous, anxious, or on edge: 0 = Not at all Not being able to stop or control worryin = Not at all Worrying too much about different things: 0 = Not at all Trouble relaxin = Not at all Being so restless that it is hard to sit still: 0 = Not at all Becoming easily annoyed or irritable: 0 = Not at all Feeling afraid as if something awful might happen: 0 = Not at all Total YARIEL-7 score (0-4 normal; 5-9 mild; 10-14 moderate; 15-21 severe): 0 Source: Developed by Drs. Tyree Zhu, Yumiko Holden, Victor Hugo Rodas and colleagues, with an educational ignacia from [employer]. Review of Systems Const Denies chills, Reports difficulty sleeping, Denies fatigue, Denies fever(s) and Reports headache(s) (on and off, most over the frontal area) ENT Denies dysphagia, Denies dizziness, Denies otalgia, Reports headache(s) (on and off, most over the frontal area), Denies neck pain, Denies odynophagia and Denies sore throat Card Denies chest pain, Denies palpitations and Denies dyspnea Resp Denies cough, Denies dyspnea and Denies wheezing GI Denies abdominal pain, Denies constipation, Denies dysphagia, Denies heartburn, Denies diarrhea, Denies nausea, Denies odynophagia and Denies vomiting Reports erectile dysfunction, Denies dysuria, Denies nocturia and Denies urinary frequency Musc Reports back pain (over the lower back - chronic), Denies arthralgias, Denies neck pain and Reports tingling (on and off over the anterior aspect of the right thigh) Skin/Breast Denies rash Neuro Denies dizziness, Reports headache(s) (on and off, most over the frontal area) and Reports tingling (on and off over the anterior aspect of the right thigh) Endo Denies fatigue and Denies palpitations Aller/Immun Denies wheezing Physical Exam Vital Signs: Last Vital Signs Pulse 60 09/20/23 10:03 BP 134/82 09/20/23 10:03 Pulse Ox 97 09/20/23 10:03 Oxygen Delivery Method Room Air 09/20/23 10:03 BMI result Body Mass Index 34.8 IPPE/AWV: Balance Romberg Yes . Tandem walk Yes . Walk and Turn Yes . Rise from sit to stand Yes . Vision Corrective lens No Vision screen pass Hearing Whisper test pass . Urinary incont. no. EKG Not clinically necessary. Const General: no acute distress and alert Orientation/consciousness: patient oriented x3 HEENT Ears: TM's normal bilaterally and EAC's normal Throat: Yes posterior oropharynx normal and Yes tonsils normal Neck Neck: Yes no lymphadenopathy and Yes supple Thyroid: Thyroid normal Lymphatic: no lymphadenopathy noted Resp Auscultation: clear to auscultation bilaterally, no crackles, no rales and no wheezes Cardio Rate: regular rate Rhythm: regular rhythm Heart sounds: no murmurs GI Palpation (GI): Soft to palpation, nontender and no guarding Auscultation: normal bowel sounds General: Yes no CVA tenderness Back/Spine/Pelvis Back: no CVA tenderness Thoracic/Lumbar Spine: lumbar spinal tenderness (chronic) Skin Rashes: no rashes Neuro General: patient oriented x3 Cognition (Neuro): normal cognition Extrem General: Yes no clubbing, cyanosis or edema Assessment & Plan Assessment & Plan (1) Medicare annual wellness visit, subsequent: Code(s): Z00.00 - Encounter for general adult medical examination without abnormal findings Plan: HRA form discussed and completed with patient - form will be scanned into patient's chart (2) Headache: Code(s): R51.9 - Headache, unspecified Qualifiers: Headache chronicity pattern: unspecified pattern Headache type: unspecified Intractability: not intractable Qualified Code(s): R51.9 - Headache, unspecified Plan: Unclear etiology at this time - may be tension/muscle contraction headaches or due to allergies, elevated BP or issues with his vision Will send him for some labs JESSI for further evaluation (3) Elevated LFTs: Code(s): R79.89 - Other specified abnormal findings of blood chemistry Plan: He is reminded that his liver enzymes were slightly elevated on his labs done last year - were probably related to his weight Will recheck his LFTs and labs JESSI for follow-up Patient is again advised to avoid alcohol and any Tylenol-containing medications as much as possible (4) GERD without esophagitis: Code(s): K21.9 - Gastro-esophageal reflux disease without esophagitis Plan: Reinforced dietary restrictions We started him on a trial of Omeprazole 20 mg QD - states that he took it for a while but did not feel any different and he self-discontinued the Rx a few m onths ago If symptoms persist, will consider referring him to GI for further evaluation (5) Lumbar degenerative disc disease: Code(s): M51.36 - Other intervertebral disc degeneration, lumbar region Plan: Reinforced activity and weight lifting restrictions Lumbar spine MRI done in April 2021 revealed (+) severe spondylosis at the L5-S1 level with [id number] bilateral foraminal narrowing. No central canal stenosis or focal disc protrusion was seen at this level. (+) left foraminal disc protrusion at the L3-L4 level with moderate encroachment but no visible nerve root impingement. Broad-based left foraminal/extraforaminal disc protrusion at the L4-L5 level mildly impressing upon the left L4 nerve root. Moderate right foraminal narrowing. Follow up with pain management as scheduled - states that his low back pain have been adequately managed so nixon (6) Paresthesia of both lower extremities: Code(s): R20.2 - Paresthesia of skin Plan: Advised that this is likley meralgia paresthetica and weight loss and wearing looser clothings can help with his symptoms Will start him on a trial of Gabapentin 100 mg BID (7) Allergic rhinitis: Code(s): J30.9 - Allergic rhinitis, unspecified Qualifiers: Allergic rhinitis trigger: unspecified Allergic rhinitis seasonality: unspecified Qualified Code(s): J30.9 - Allergic rhinitis, unspecified Plan: Continue Fluticasone 50 mcg nasal spray QD PRN - Rx refilled (8) Insomnia: Code(s): G47.00 - Insomnia, unspecified Qualifiers: Insomnia type: unspecified Qualified Code(s): G47.00 - Insomnia, unspecified Plan: Sleep hygiene reinforced Was started on Trazodone 50 mg daily at bedtime previously but patient states that they did not help and he quit taking it after a while Thinks that his trouble sleeping may be mostly due to his low back pain and also some anxiety but does not wish to take anything for anxiety at this time (9) Obesity (BMI 30-39.9): Code(s): E66.9 - Obesity, unspecified Plan: Reinforced diet/exercise as tolerated/lose weight Plan Follow up in 4 months Orders: Orders Complete Blood Count Auto Diff 09/24/23 I10 - Essential (primary) hypertension, R20.2 - Paresthesia of skin Comprehensive [place]. Panel Fast 09/24/23 E78.00 - Pure hypercholesterolemia, unspecified, R20.2 - Paresthesia of skin TSH reflex Free T4 09/24/23 E78.00 - Pure hypercholesterolemia, unspecified, R20.2 - Paresthesia of skin Vitamin B12 and Folate 09/24/23 E53.8 - Deficiency of other specified B group vitamins, R20.2 - Paresthesia of skin Prostate Specific Antigen 09/24/23 N40.0 - Benign prostatic hyperplasia without lower urinary tract symptoms Lipid Panel 09/24/23 E78.00 - Pure hypercholesterolemia, unspecified, R20.2 - Paresthesia of skin Magnesium 09/24/23 E83.42 - Hypomagnesemia, R20.2 - Paresthesia of skin UA CC w/rflx Micro + Cult 09/24/23 R30.0 - Dysuria, R20.2 - Paresthesia of skin Vitamin D 25-OH Total 09/24/23 E55.9 - Vitamin D deficiency, unspecified, R20.2 - Paresthesia of skin Erythrocyte Sedimentation Rate 09/24/23 M79.7 - Fibromyalgia, R20.2 - Paresthesia of skin C Reactive Protein 09/24/23 R20.2 - Paresthesia of skin Medications: New gabapentin 100 mg PO BID 60 caps 3RF 30 days Changed From fluticasone propionate 50 mcg/actuation administer into each nostril at bedtime 2 sprays intranasal DAILY 30 days PRN 16 grams 5RF allergy symptoms To fluticasone propionate 50 mcg/actuation administer into each nostril at bedtime 2 sprays intranasal DAILY PRN 16 grams 5RF allergy symptoms 30 days Quality Reporting (2019) Depression/Bipolar (159/160/161/177) PHQ-9: Total score: 2 Coding Level of Care Code Medicare Subsequent (G0439) Est Pt Level 4 (19312) Diagnoses Medicare annual wellness visit, subsequent Z00.00 Nonintractable headache, unspecified chronicity pattern, unspecified headache type R51.9 Headache chronicity pattern: unspecified pattern Headache type: unspecified Intractability: not intractable Elevated LFTs R79.89 GERD without esophagitis K21.9 Lumbar degenerative disc disease M51.36 Paresthesia of both lower extremities R20.2 Allergic rhinitis, unspecified seasonality, unspecified trigger J30.9 Allergic rhinitis trigger: unspecified Allergic rhinitis seasonality: unspecified Insomnia, unspecified type G47.00 Insomnia type: unspecified Obesity (BMI 30-39.9) E66.9
== END 2023-09-20 11:03 | disposition home or self-care (01) ==
PROVIDERS: PCP Internal Medicine; Visit Provider Internal Medicine
DX: Z00.00 Encounter for general adult medical examination without abnormal findings (principal); R51.9 Headache, unspecified; R79.89 Other specified abnormal findings of blood chemistry; K21.9 Gastro-esophageal reflux disease without esophagitis; M51.36 Other intervertebral disc degeneration, lumbar region; R20.2 Paresthesia of skin; J30.9 Allergic rhinitis, unspecified; G47.00 Insomnia, unspecified; E66.9 Obesity, unspecified
CPT/HCPCS: 99214; G0439

== ENCOUNTER 2023-09-24 07:43 | Outpatient (REF) | payer MEDICARE, OTHER, SELFPAY ==
[2023-09-24 08:33] LABS: MANUAL DIFF FLAG NO
[2023-09-24 08:54] LABS: Basophils Absolute Auto 0.1 X10*3/uL (0.0-0.2); Basophils Percent Auto 0.8 % (0-2); Eosinophils Absolute Auto 0.2 X10*3/uL (0.0-0.4); Hematocrit 45.4 % (42.0-52.0); Hemoglobin 15.2 g/dl (14.0-18.0); Imm Gran Abs Auto 0.04 X10*3/uL (0.00-0.03); Imm Gran Pct Auto 0.7 % (0.0-0.4); Lymphocytes Absolute Auto 1.9 X10*3/uL (1.2-4.9); Lymphocytes Percent Auto 31.6 % (20-40); Mean Corpuscular HGB Conc 33.5 g/dl (31.0-36.0); Mean Corpuscular Hemoglobin 29.9 pg (27.0-33.0); Mean Corpuscular Volume 89.2 fL (80.0-98.0); Mean Platelet Volume 10.1 fL (9.4-12.4); Monocytes Absolute Auto 0.6 X10*3/uL (0.1-1.2); Monocytes Percent Auto 10.1 % (2-11); Neutrophils Absolute Auto 3.2 x10*3/uL (2.0-8.3); Neutrophils Percent Auto 52.8 % (45-73); Platelet Count 225 X10*3/uL (160-400); Red Blood Count 5.09 X10*6/uL (4.60-5.80); Red Cell Distribution Width 13.1 % (11.0-16.0)
[2023-09-24 09:32] LABS: Alanine Aminotransferase 74 U/L (0-40); Albumin Level 4.4 g/dL (3.5-5.0); Alkaline Phosphatase 67 U/L (39-117); Anion Gap 12 (12-20); Aspartate Amino Transferase 46 U/L (5-37); Blood Urea Nitrogen 16 mg/dL (9-16); C Reactive Protein 0.15 mg/dL (< or = 0.50); Calcium 9.4 mg/dL (8.4-10.2); Carbon Dioxide 29 mmol/L (22-29); Chloride 105 mmol/L (96-108); Cholesterol 168 mg/dL (<200); Erythrocyte Sedimentation Rate 1 MM/HR (0-15); Estimated Glomerular Filt Rate > 60; Glucose Fasting 97 mg/dL (60-99); HDL Cholesterol 32 mg/dL (>40); LDL Cholesterol Calculated 101 mg/dL (<100); Magnesium 1.8 mg/dL (1.6-2.6); Potassium 4.2 mmol/L (3.3-5.1); Sodium 142 mmol/L (135-145); Total Protein 7.4 g/dL (6.5-8.0); Triglycerides 177 mg/dL (<150)
[2023-09-24 09:50] LABS: TSH reflex Free T4 2.06 uIU/mL (0.32-4.0); Vitamin D 25-OH Total 29.3 ng/mL (>30)
[2023-09-24 09:56] LABS: Prostate Specific Antigen 0.49 ng/mL (<0.05-4.0); Vitamin B12 512 pg/mL (200-900)
== END 2023-09-24 07:44 | disposition home or self-care (01) ==
LOC: HO.LAB 07:43
PROVIDERS: PCP Internal Medicine; Visit Provider Internal Medicine
DX: E78.00 Pure hypercholesterolemia, unspecified (principal); R20.2 Paresthesia of skin; N40.0 Benign prostatic hyperplasia without lower urinary tract symptoms; E83.42 Hypomagnesemia; I10 Essential (primary) hypertension; E53.8 Deficiency of other specified B group vitamins; E55.9 Vitamin D deficiency, unspecified; M79.7 Fibromyalgia; R30.0 Dysuria; Z12.5 Encounter for screening for malignant neoplasm of prostate
CPT/HCPCS: 36415; 80053; 80061; 82306; 82607; 82746; 83735; 84153; 84443; 85025; 85652; 86140

== ENCOUNTER 2023-11-01 09:44 | Outpatient (AMB) | payer MEDICARE, SELFPAY ==
[2023-11-01 09:45] VITALS: BP 122/86; PULSE 61; O2SAT 97; BMI 35.2
--- NOTE | 2023-11-01 09:45 | MHC.PC.OV ---
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 Required: No Accompanied by: Self / Same As Patient Allergies No Known Allergies Allergy (Mild, Verified 11/01/23 10:13) NKA Medication List - Last Reconciled 11/01/23 by John Youngblood MD fluticasone propionate 50 mcg/actuation 2 sprays intranasal DAILY PRN 30 days gabapentin 100 mg PO BID 30 days Tobacco use date assessed: 11/01/23 Fall risk assessment: No Falls in past year Last assessed Fall Risk: 11/01/23 Dental Screening Dental Screen Date: 11/01/23 Did you have a dental visit in the last 12 months?: No Did you have a dental problem in the last 6 months where you did not have access to dental care?: No Was dental information given to patient?: No HPI Vision problems HPI Details Patient comes in today complaining of problems with his vision States that he's had issues with blurred vision in both eyes since he was a child and that all attempts by the numerous eye doctors that he has seen so far have not been successful in correcting his vision but he does not really know what is the reason for his eye symptoms States that 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 1. Little interest or pleasure in doing things: not at all 2. Feeling down, depressed, or hopeless: not at all 3. Trouble falling or staying asleep, or sleeping too much: several days 4. Feeling tired or having little energy: several days 5. Poor appetite or overeating: not at all 6. Feeling bad about yourself - or that you are a failure or have let yourself or your family down: not at all 7. Trouble concentrating on things, such as reading the newspaper or watching television: not at all 8. Moving or speaking so slowly that other people could have noticed. Or the opposite - being so fidgety or restless that you have been moving around a lot more than usual: not at all 9. Thoughts that you would be better off or of hurting yourself in some way: not at all Total score: 2 Depression Screening Interpretation: Negative Depression Screening Done: Yes 31935 - PHQ-9 Billing: Yes Source: Developed by Drs. Tyree Zhu, Yumiko Holden, Victor Hugo Rodas and colleagues, with an educational ignacia from [employer]. Thrive Questionnaire Date Thrive assessed: 11/01/23 I am a: Patient What is your living situation today?: I have a steady place to live Within the past 12 months, did the food you bought not last and you didn't have the money to get more?: Never true Within the past 12 months, did you worry whether your food would run out before you got money to buy more?: Never true Do you have trouble paying for medicines?: No Do you have trouble getting transportation to medical appointments?: No Do you have trouble paying your heating and electricity bill?: No Do you have trouble taking care of your child, family member or friend?: No Do you have trouble with day-to-day activities such as bathing, preparing meals, shopping, managing finances, etc.?: No Are you currently unemployed and looking for a job?: No Are you interested in more education?: No Please select the resources that you would like help with: None Currently or been in a relationship where the following occur: no concerns reported THRIVE Score: 0 AUDIT C Alcohol Use Questionnaire (AUDIT-C) 1. How often do you have a drink containing alcohol?: Monthly or less 2. How many drinks containing alcohol do you have on a typical day when you are drinking?: 1 or 2 3. How often do you have six or more drinks on one occasion?: Never Total Score: 1 Score Reviewed/Action Taken: Yes YARIEL-7 AMB Questionnaire YARIEL-7 Date YARIEL - 7 assessed: 11/01/23 Feeling nervous, anxious, or on edge: 0 = Not at all Not being able to stop or control worryin = Not at all Worrying too much about different things: 0 = Not at all Trouble relaxin = Not at all Being so restless that it is hard to sit still: 0 = Not at all Becoming easily annoyed or irritable: 0 = Not at all Feeling afraid as if something awful might happen: 0 = Not at all Total YARIEL-7 score (0-4 normal; 5-9 mild; 10-14 moderate; 15-21 severe): 0 Source: Developed by Drs. Tyree Zhu, Yumiko Holden, Victor Hugo Rodas and colleagues, with an educational ignacia from [employer]. Review of Systems Const Denies chills, Denies fatigue, Denies fever(s) and Reports headache(s) (recurrent lately, mostly over the frontal area) Eyes Reports blurry vision (bilateral; chronic) and Denies eye pain ENT Denies dysphagia, Denies dizziness, Reports headache(s) (recurrent lately, mostly over the frontal area), Denies neck pain, Denies odynophagia and Denies sore throat Card Denies chest pain, Denies palpitations and Denies dyspnea Resp Denies cough and Denies dyspnea GI Denies abdominal pain, Denies constipation, Denies dysphagia, Denies heartburn, Denies diarrhea, Denies nausea, Denies odynophagia and Denies vomiting Denies dysuria, Denies nocturia and Denies urinary frequency Musc Denies neck pain Skin/Breast Denies rash Neuro Denies dizziness and Reports headache(s) (recurrent lately, mostly over the frontal area) Endo Denies fatigue and Denies palpitations Physical exam (Primary Care) Vital Signs: Last Vital Signs Pulse 61 11/01/23 09:45 BP 122/86 11/01/23 09:45 Pulse Ox 97 11/01/23 09:45 Oxygen Delivery Method Room Air 11/01/23 09:45 BMI result Body Mass Index 35.2 Tobacco/Smoking Status: Tobacco use Status Tobacco use date assessed 11/01/23 11/01/23 09:51 Patient Tobacco Use Status Former Tobacco user 11/01/23 09:51 Tobacco use type Cigarette 11/01/23 09:51 e-Cigarette/Vaping Use Never Used 11/01/23 09:51 PHQ-9: PHQ-9 Score PHQ-9: Total score 2 11/01/23 10:14 Depression Screening Interpretation: Negative Thrive Assessment: Date of Thrive Assessment Date Thrive assessed 11/01/23 11/01/23 09:51 Currently or been in a relationship where the following occur: no concerns reported Const General: no acute distress and alert Eyes Conjunctivae: conjunctivae normal Pupils: Equal, round and reactive pupils present EOM: EOMs intact bilaterally Neck Neck: Yes no lymphadenopathy and Yes supple Resp Auscultation: clear to auscultation bilaterally, no rales and no wheezes Cardio Rate: regular rate Rhythm: regular rhythm Heart sounds: no murmurs GI Palpation (GI): Soft to palpation and nontender Auscultation: normal bowel sounds Skin Rashes: no rashes Neuro Cranial nerves: Yes Equal, round and reactive pupils present Extrem General: Yes no clubbing, cyanosis or edema Assessment and Plan Assessment & Plan (1) Blurry vision, bilateral: Code(s): H53.8 - Other visual disturbances Plan: Unclear etiology at this time - discussed possibilities include cataract, retinal issues, etc Will refer him to ophthalmology for further evaluation and management (2) Headache: Code(s): R51.9 - Headache, unspecified Qualifiers: Headache type: unspecified Headache chronicity pattern: unspecified pattern Intractability: not intractable Qualified Code(s): R51.9 - Headache, unspecified Plan: Advised that his recent headaches may be actually related to his vision problems and should improve or resolve once his eye symptoms are taken care of Plan Follow up as scheduled in January 2024 Orders: Referrals Ophthalmology Referral H53.8 - Other visual disturbances Coding Level of Care Code Est Pt Level 3 (36598) Diagnoses Blurry vision, bilateral H53.8 Nonintractable headache, unspecified chronicity pattern, unspecified headache type R51.9 Headache type: unspecified Headache chronicity pattern: unspecified pattern Intractability: not intractable
== END 2023-11-01 10:19 | disposition home or self-care (01) ==
PROVIDERS: PCP Internal Medicine; Visit Provider Internal Medicine
DX: H53.8 Other visual disturbances (principal); R51.9 Headache, unspecified
CPT/HCPCS: 99213

== ENCOUNTER 2024-01-25 10:09 | Outpatient (AMB) | payer MEDICARE, SELFPAY ==
[2024-01-25 10:12] VITALS: BP 132/84; PULSE 59; O2SAT 97; BMI 35.2
--- NOTE | 2024-01-25 10:12 | MHC.PC.OV ---
Vital Signs 01/25/24 10:12 Height 5 ft 7 in Weight 225 lb BMI 35.2 BP 132/84 Blood Pressure Location Lt brachial Position Sitting Pulse 59 Pulse Source Pulse Oximeter Pulse Oximetry (%) 97 Oxygen Delivery Method Room Air Intake Visit Reasons: 4mth f/u Night Supervisor Required: No Allergies No Known Allergies Allergy (Mild, Verified 01/25/24 10:49) NKA Medication List - Last Reconciled 01/25/24 by John Youngblood MD No Known Home Meds Tobacco use date assessed: 01/25/24 Fall risk assessment: No Falls in past year Last assessed Fall Risk: 01/25/24 Dental Screening Dental Screen Date: 11/01/23 HPI 4mth f/u HPI Details Patient comes in today for his follow up visit States that he feels okay He still has on and off frontal headaches but states that they seem to be less intense since he started wearing his prescription eyeglasses, which have helped correct his vision He denies any dizziness Denies any chest pains, no increased SOB No nausea/vomiting, no abdominal pain No change in bowel habits noted Still has recurrent pain over his lower back - used to see pain management but has not been back to see them in over a year now He had right L-4/5 TFESI earlier last year, which he states have helped He was also taking Gabapentin previously but he stopped taking this recently as he noticed that his pharmacy was charging him to pay more that he felt the actual Rx was worth States that he has been managing his pain so far without any significant issues lately He would also like to know how he did on his labs done back in September 2023; has had no other labs done since [facility] Medical History Vitamin D deficiency Mixed hyperlipidemia Paresthesia of both lower extremities GERD without esophagitis Erectile dysfunction Hemorrhoids Elevated LFTs Lumbar degenerative disc disease Insomnia Obesity (BMI 30-39.9) Fatty liver Surgical History H/O colonoscopy Hx of circumcision Family History Father No problems noted. 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 1. Little interest or pleasure in doing things: not at all 2. Feeling down, depressed, or hopeless: not at all 3. Trouble falling or staying asleep, or sleeping too much: several days 4. Feeling tired or having little energy: several days 5. Poor appetite or overeating: not at all 6. Feeling bad about yourself - or that you are a failure or have let yourself or your family down: not at all 7. Trouble concentrating on things, such as reading the newspaper or watching television: not at all 8. Moving or speaking so slowly that other people could have noticed. Or the opposite - being so fidgety or restless that you have been moving around a lot more than usual: not at all 9. Thoughts that you would be better off or of hurting yourself in some way: not at all Total score: 2 Depression Screening Interpretation: Negative Depression Screening Done: Yes 31301 - PHQ-9 Billing: Yes Source: Developed by Drs. Tyree Zhu, Yumiko Holden, Victor Hugo Rodas and colleagues, with an educational ignacia from [employer]. Thrive Questionnaire Date Thrive assessed: 01/25/24 I am a: Patient What is your living situation today?: I have a steady place to live Within the past 12 months, did the food you bought not last and you didn't have the money to get more?: Never true Within the past 12 months, did you worry whether your food would run out before you got money to buy more?: Never true Do you have trouble paying for medicines?: No Do you have trouble getting transportation to medical appointments?: No Do you have trouble paying your heating and electricity bill?: No Do you have trouble taking care of your child, family member or friend?: No Do you have trouble with day-to-day activities such as bathing, preparing meals, shopping, managing finances, etc.?: No Are you currently unemployed and looking for a job?: No Are you interested in more education?: No Please select the resources that you would like help with: None Currently or been in a relationship where the following occur: no concerns reported THRIVE Score: 0 AUDIT C Alcohol Use Questionnaire (AUDIT-C) 1. How often do you have a drink containing alcohol?: Monthly or less 2. How many drinks containing alcohol do you have on a typical day when you are drinking?: 1 or 2 3. How often do you have six or more drinks on one occasion?: Never Total Score: 1 Score Reviewed/Action Taken: Yes YARIEL-7 AMB Questionnaire YARIEL-7 Date YARIEL - 7 assessed: 11/01/23 Source: Developed by Drs. Tyree Zhu, Yumiko Holden, Victor Hugo Rodas and colleagues, with an educational ignacia from [employer]. Review of Systems Const Denies chills, Denies fatigue, Denies fever(s) and Reports headache(s) (recurrent lately, mostly over the frontal area) ENT Denies dysphagia, Denies dizziness, Reports headache(s) (recurrent lately, mostly over the frontal area), Denies neck pain, Denies odynophagia and Denies sore throat Card Denies chest pain, Denies palpitations and Denies dyspnea Resp Denies cough and Denies dyspnea GI Denies abdominal pain, Denies constipation, Denies dysphagia, Denies heartburn, Denies diarrhea, Denies nausea, Denies odynophagia and Denies vomiting Denies dysuria, Denies nocturia and Denies urinary frequency Musc Reports back pain (chronic, over the lower back) and Denies neck pain Skin/Breast Denies rash Neuro Denies dizziness and Reports headache(s) (recurrent lately, mostly over the frontal area) Endo Denies fatigue and Denies palpitations Neeraj/Lymph Details: (+) recurrent swelling of both legs and feet often at the end of the day Physical exam (Primary Care) Vital Signs: Last Vital Signs Pulse 59 01/25/24 10:12 BP 132/84 01/25/24 10:12 Pulse Ox 97 01/25/24 10:12 Oxygen Delivery Method Room Air 01/25/24 10:12 BMI result Body Mass Index 35.2 Tobacco/Smoking Status: Tobacco use Status Tobacco use date assessed 01/25/24 01/25/24 10:13 Patient Tobacco Use Status Former Tobacco user 01/25/24 10:13 Tobacco use type Cigarette 01/25/24 10:13 e-Cigarette/Vaping Use Never Used 01/25/24 10:13 PHQ-9: PHQ-9 Score PHQ-9: Total score 2 01/25/24 10:19 Depression Screening Interpretation: Negative Thrive Assessment: Date of Thrive Assessment Date Thrive assessed 01/25/24 01/25/24 10:13 Currently or been in a relationship where the following occur: no concerns reported Const General: no acute distress and alert HENMT Ears: TM's normal bilaterally and EAC's normal Throat: Yes posterior oropharynx normal and Yes tonsils normal Neck Neck: Yes no lymphadenopathy and Yes supple Thyroid: Thyroid normal Resp Auscultation: clear to auscultation bilaterally, no rales and no wheezes Cardio Rate: regular rate Rhythm: regular rhythm Heart sounds: no murmurs GI Palpation (GI): Soft to palpation and nontender Auscultation: normal bowel sounds General: Yes no CVA tenderness Back/Spine/Pelvis Back: no CVA tenderness Thoracic/Lumbar Spine: lumbar spinal tenderness Skin Rashes: no rashes Extrem General: Yes no clubbing, cyanosis or edema (although he reports (+) swelling of his legs and feet at the end of the day) Results Reviewed Results Reviewed: Laboratory Tests 09/24/23 08:30 WBC 6.0 Hgb 15.2 Hct 45.4 Plt Count 225 ESR 1 Sodium 142 Potassium 4.2 Creatinine 1.01 Estimated GFR > 60 Fasting Glucose 97 Calcium 9.4 Magnesium 1.8 AST 46 H ALT 74 H Alkaline Phosphatase 67 C-Reactive Protein 0.15 Triglycerides 177 H Cholesterol 168 LDL Cholesterol, Calc 101 H HDL Cholesterol 32 L Prostate Specific Ag 0.49 Vitamin B12 512 25-OH Vitamin D Total 29.3 L TSH 2.06 Assessment and Plan Assessment & Plan (1) Lumbar degenerative disc disease: Code(s): M51.36 - Other intervertebral disc degeneration, lumbar region Plan: He has multilevel degenerative disc disease Lumbar spine MRI done in April 2021 revealed (+) severe L5-S1 spondylosis with [id number] bilateral foraminal narrowing; no central canal stenosis or focal disc protrusion were noted here. (+) left foraminal disc protrusion at the L3-L4 level with moderate encroachment but no visible nerve root impingement. There is a broad-based left foraminal/extraforaminal disc protrusion at the L4-L5 level mildly impressing upon the left L4 nerve root, with moderate right foraminal narrowing Reinforced activity and weight-lifting restrictions to avoid aggravating his back symptoms He was taking Gabapentin but he stopped taking Gabapentin recently as he states that he refused to pay more for something that he is being overcharged for He was also seeing pain management and had right L-4/5 TFESI earlier last year which he felt helped He has not seen pain management in over a year now and is advised to reach out to them to schedule a follow up appt with them JESSI (2) Elevated LFTs: Code(s): R79.89 - Other specified abnormal findings of blood chemistry Plan: Results of his labs done back in September 2023 reviewed and discussed with patient - advised that his LFTs are still elevated - are most likely due to hepatosteatosis and should improve with weight loss He should also avoid taking a lot of Tylenol or Tylenol-containing medications and also avoid alcohol, which he admits he drinks occasionally Will continue to monitor his LFTs regularly and consider getting an abdominal US for further evaluation if his LFTs remain elevated at his next follow up visit (3) Mixed hyperlipidemia: Code(s): E78.2 - Mixed hyperlipidemia Plan: His serum triglyceride level was slightly elevated at 177 mg/dl back in September 2023 Reinforced low cholesterol diet Will recheck his labs and fasting lipids in 6 months for follow up (4) Right knee pain: Code(s): M25.561 - Pain in right knee Qualifiers: Chronicity: unspecified Qualified Code(s): M25.561 - Pain in right knee Plan: X-rays of the knee done last year (March 2023) revealed (+) chondrocalcinosis, which can be associated with CPPD States that his right knee feels okay at present Will consider referring him to rheumatology for further evaluation and management (of possible CPPD) if his knee symptoms flare up again (5) Vitamin D deficiency: Code(s): E55.9 - Vitamin D deficiency, unspecified Plan: He is advised that his Vitamin D level was just slightly under the normal cut off value on his labs done back in September 2023 He should consider taking some OTC Vitamin D3 of at least 1000 units QD (6) Insomnia: Code(s): G47.00 - Insomnia, unspecified Qualifiers: Insomnia type: unspecified Qualified Code(s): G47.00 - Insomnia, unspecified Plan: Sleep hygiene reinforced Recalls taking OTC Melatonin up to 10 mg in the past with no relief He declines offer to start him on any Rx for sleep at this time - states that he will call for Rx if he needs it (7) Obesity (BMI 30-39.9): Code(s): E66.9 - Obesity, unspecified Plan: Reinforced diet/exercise as tolerated/lose weight Plan Follow up in 6 months Orders: Orders Comprehensive [place]. Panel Fast 6 Months E78.00 - Pure hypercholesterolemia, unspecified, R79.89 - Other specified abnormal findings of blood chemistry Lipid Panel 6 Months E78.00 - Pure hypercholesterolemia, unspecified, R79.89 - Other specified abnormal findings of blood chemistry TSH reflex Free T4 6 Months E78.00 - Pure hypercholesterolemia, unspecified, R79.89 - Other specified abnormal findings of blood chemistry Vitamin D 25-OH Total 6 Months E55.9 - Vitamin D deficiency, unspecified, R79.89 - Other specified abnormal findings of blood chemistry B Type Natriuretic Peptide 6 Months R60.9 - Edema, unspecified Complete Blood Count Auto Diff 6 Months D64.9 - Anemia, unspecified, R79.89 - Other specified abnormal findings of blood chemistry UA CC w/rflx Micro + Cult 6 Months R30.0 - Dysuria, R79.89 - Other specified abnormal findings of blood chemistry Coding Level of Care Code Est Pt Level 4 (17552) Diagnoses Lumbar degenerative disc disease M51.36 Elevated LFTs R79.89 Mixed hyperlipidemia E78.2 Right knee pain, unspecified chronicity M25.561 Chronicity: unspecified Vitamin D deficiency E55.9 Insomnia, unspecified type G47.00 Insomnia type: unspecified Obesity (BMI 30-39.9) E66.9
== END 2024-01-25 11:02 | disposition home or self-care (01) ==
PROVIDERS: PCP Internal Medicine; Visit Provider Internal Medicine
DX: M51.36 Other intervertebral disc degeneration, lumbar region (principal); R79.89 Other specified abnormal findings of blood chemistry; E78.2 Mixed hyperlipidemia; M25.561 Pain in right knee; E55.9 Vitamin D deficiency, unspecified; G47.00 Insomnia, unspecified; E66.9 Obesity, unspecified
CPT/HCPCS: 99214

== ENCOUNTER 2024-07-21 07:02 | Outpatient (REF) | payer MEDICARE, SELFPAY ==
[2024-07-21 07:15] LABS: MANUAL DIFF FLAG NO
[2024-07-21 07:21] LABS: Basophils Absolute Auto 0.1 X10*3/uL (0.0-0.2); Basophils Percent Auto 0.7 % (0-2); Eosinophils Absolute Auto 0.3 X10*3/uL (0.0-0.4); Eosinophils Percent Auto 4.6 % (0-4); Hematocrit 46.8 % (42.0-52.0); Hemoglobin 15.7 g/dl (14.0-18.0); Imm Gran Abs Auto 0.05 X10*3/uL (0.00-0.03); Imm Gran Pct Auto 0.7 % (0.0-0.4); Lymphocytes Absolute Auto 2.2 X10*3/uL (1.2-4.9); Lymphocytes Percent Auto 32.4 % (20-40); Mean Corpuscular HGB Conc 33.5 g/dl (31.0-36.0); Mean Corpuscular Hemoglobin 30.4 pg (27.0-33.0); Mean Corpuscular Volume 90.5 fL (80.0-98.0); Mean Platelet Volume 9.6 fL (9.4-12.4); Monocytes Absolute Auto 0.6 X10*3/uL (0.1-1.2); Monocytes Percent Auto 9.2 % (2-11); Neutrophils Absolute Auto 3.5 x10*3/uL (2.0-8.3); Neutrophils Percent Auto 52.4 % (45-73); Platelet Count 231 X10*3/uL (160-400); Red Blood Count 5.17 X10*6/uL (4.60-5.80); Red Cell Distribution Width 13.1 % (11.0-16.0); White Blood Count 6.7 X10*3/uL (4.8-10.8)
[2024-07-21 07:29] LABS: Appearance Urine Clear; Color Urine Yellow; Glucose Urine UA Negative (Negative); Leukocyte Esterase Urine Negative (Negative); Nitrite Urine Negative (Negative); PH 5.5 (5.0-9.0); Urine Blood Negative (Negative); Urine Ketones Negative (Negative); Urine Protein Trace mg/dL (Neg-Trace)
[2024-07-21 07:41] LABS: Alanine Aminotransferase 79 U/L (0-40); Albumin Level 4.5 g/dL (3.5-5.0); Alkaline Phosphatase 72 U/L (39-117); Anion Gap 13 (12-20); Aspartate Amino Transferase 44 U/L (5-37); B Type Natriuretic Peptide 13 pg/mL (<100); Bilirubin Total 0.9 mg/dL (0.0-1.0); Blood Urea Nitrogen 17 mg/dL (9-16); Carbon Dioxide 25 mmol/L (22-29); Chloride 106 mmol/L (96-108); Cholesterol 164 mg/dL (<200); Estimated Glomerular Filt Rate > 60; Glucose Fasting 101 mg/dL (60-99); HDL Cholesterol 33 mg/dL (>40); LDL Cholesterol Calculated 96 mg/dL (<100); Potassium 3.9 mmol/L (3.3-5.1); Sodium 140 mmol/L (135-145); Total Protein 7.5 g/dL (6.5-8.0); Triglycerides 176 mg/dL (<150)
[2024-07-21 07:57] LABS: TSH reflex Free T4 3.28 uIU/mL (0.32-4.0); Vitamin D 25-OH Total 31.5 ng/mL (>30)
== END 2024-07-21 07:03 | disposition home or self-care (01) ==
LOC: HO.LAB 07:02
PROVIDERS: PCP Internal Medicine; Visit Provider Internal Medicine
DX: E78.00 Pure hypercholesterolemia, unspecified (principal); R60.9 Edema, unspecified; D64.9 Anemia, unspecified; R79.89 Other specified abnormal findings of blood chemistry; R30.0 Dysuria; E55.9 Vitamin D deficiency, unspecified
CPT/HCPCS: 36415; 80053; 80061; 81003; 82306; 83880; 84443; 85025

== ENCOUNTER 2024-07-30 10:43 | Outpatient (AMB) | payer MEDICARE, SELFPAY ==
[2024-07-30 10:52] VITALS: BP 126/82; PULSE 65; O2SAT 97; BMI 35.2
--- NOTE | 2024-07-30 10:52 | A.OFFPC_ITS ---
Vital Signs 07/30/24 10:52 Height 5 ft 7 in Weight 224 lb 8 oz BMI 35.2 BP 126/82 Blood Pressure Location Lt brachial Pulse 65 Pulse Source Pulse Oximeter Pulse Oximetry (%) 97 Oxygen Delivery Method Room Air Intake Visit Reasons: 6mof\u Small Engine Specialist Required: No Accompanied by: Self / Same As Patient Allergies No Known Allergies Allergy (Mild, Verified 07/30/24 11:31) NKA Medication List - Last Reconciled 07/30/24 by John Youngblood MD No Known Home Meds Tobacco use date assessed: 07/30/24 Last assessed Fall Risk: 07/30/24 Dental Screening Dental Screen Date: 07/30/24 HPI 6mof\u HPI Details Patient comes in today for his follow up visit States that he feels okay He denies any headaches or dizziness - states that his headaches have improved with correction of his vision with prescription eyeglasses Denies any chest pains, no increased SOB No nausea/vomiting, no abdominal pain No change in bowel habits noted He still has recurrent pain over his lower back - used to see pain management but has not been back to see them in over a year now He had right L-4/5 TFESI earlier last year, which he states have helped He also continues to experience recurrent pain in his right knee Adds that he has been experiencing urinary frequency and urgency as well as nocturia for a few months now and feels that his urinary symptoms have been getting worse lately He had his follow up labs done a couple of weekends ago - to discuss his results [facility] Medical History Benign prostatic hyperplasia (BPH) with urinary urgency Chondrocalcinosis Vitamin D deficiency Mixed hyperlipidemia Paresthesia of both lower extremities GERD without esophagitis Erectile dysfunction Hemorrhoids Elevated LFTs Lumbar degenerative disc disease Insomnia Obesity (BMI 30-39.9) Fatty liver Surgical History H/O colonoscopy Hx of circumcision Family History Father No problems noted. 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 1. Little interest or pleasure in doing things: not at all 2. Feeling down, depressed, or hopeless: not at all 3. Trouble falling or staying asleep, or sleeping too much: several days 4. Feeling tired or having little energy: several days 5. Poor appetite or overeating: not at all 6. Feeling bad about yourself - or that you are a failure or have let yourself or your family down: not at all 7. Trouble concentrating on things, such as reading the newspaper or watching television: not at all 8. Moving or speaking so slowly that other people could have noticed. Or the opposite - being so fidgety or restless that you have been moving around a lot more than usual: not at all 9. Thoughts that you would be better off or of hurting yourself in some way: not at all Total score: 2 Depression Screening Interpretation: Negative Depression Screening Done: Yes [id number] - PHQ-9 Billing: Yes Source: Developed by Drs. Tyree Zhu, Yumiko Holden, Victor Hugo Rodas and colleagues, with an educational ignacia from [employer]. Thrive Questionnaire Date Thrive assessed: 07/30/24 I am a: Patient What is your living situation today?: I have a steady place to live Within the past 12 months, did the food you bought not last and you didn't have the money to get more?: Never true Within the past 12 months, did you worry whether your food would run out before you got money to buy more?: Never true Do you have trouble paying for medicines?: No Do you have trouble getting transportation to medical appointments?: No Do you have trouble paying your heating and electricity bill?: No Do you have trouble taking care of your child, family member or friend?: No Do you have trouble with day-to-day activities such as bathing, preparing meals, shopping, managing finances, etc.?: No Are you currently unemployed and looking for a job?: No Are you interested in more education?: No Please select the resources that you would like help with: None Currently or been in a relationship where the following occur: No concerns reported THRIVE Score: 0 AUDIT C Alcohol Use Questionnaire (AUDIT-C) 1. How often do you have a drink containing alcohol?: Monthly or less 2. How many drinks containing alcohol do you have on a typical day when you are drinking?: 1 or 2 3. How often do you have six or more drinks on one occasion?: Less than monthly Total Score: 2 Score Reviewed/Action Taken: Yes YARIEL-7 AMB Questionnaire YARIEL-7 Date YARIEL - 7 assessed: 07/30/24 Feeling nervous, anxious, or on edge: 0 = Not at all Not being able to stop or control worryin = Not at all Worrying too much about different things: 0 = Not at all Trouble relaxin = Not at all Being so restless that it is hard to sit still: 0 = Not at all Becoming easily annoyed or irritable: 0 = Not at all Feeling afraid as if something awful might happen: 0 = Not at all Total YARIEL-7 score (0-4 normal; 5-9 mild; 10-14 moderate; 15-21 severe): 0 Source: Developed by Drs. Tyree Zhu, Yumiko Holden, Victor Hugo Rodas and colleagues, with an educational ignacia from [employer]. Review of Systems Const Denies chills, Denies fatigue, Denies fever(s) and Reports headache(s) (recurrent lately, mostly over the frontal area) ENT Denies dysphagia, Denies dizziness, Reports headache(s) (recurrent lately, mostly over the frontal area), Denies neck pain, Denies odynophagia and Denies sore throat Card Denies chest pain, Denies palpitations and Denies dyspnea Resp Denies cough and Denies dyspnea GI Denies abdominal pain, Denies constipation, Denies dysphagia, Denies heartburn, Denies diarrhea, Denies nausea, Denies odynophagia and Denies vomiting Reports difficulty urinating, Denies dysuria, Reports nocturia, Reports urinary frequency and Reports urinary urgency (at times) Musc Reports back pain (chronic, over the lower back) and Denies neck pain Skin/Breast Denies rash Neuro Denies dizziness and Reports headache(s) (recurrent lately, mostly over the frontal area) Endo Denies fatigue and Denies palpitations Neeraj/Lymph Details: (+) recurrent swelling of both legs and feet often at the end of the day Physical exam (Primary Care) Vital Signs: Last Vital Signs Pulse 65 07/30/24 10:52 BP 126/82 07/30/24 10:52 Pulse Ox 97 07/30/24 10:52 Oxygen Delivery Method Room Air 07/30/24 10:52 BMI result Body Mass Index 35.2 Tobacco/Smoking Status: Tobacco use Status Tobacco use date assessed 07/30/24 07/30/24 10:55 Patient Tobacco Use Status Former Tobacco user 07/30/24 10:55 Tobacco use type Cigarette 07/30/24 10:55 e-Cigarette/Vaping Use Never Used 07/30/24 10:55 PHQ-9: PHQ-9 Score PHQ-9: Total score 2 07/30/24 11:09 Depression Screening Interpretation: Negative Thrive Assessment: Date of Thrive Assessment Date Thrive assessed 07/30/24 07/30/24 10:55 Currently or been in a relationship where the following occur: No concerns reported Const General: no acute distress and alert HENMT Ears: TM's normal bilaterally and EAC's normal Throat: Yes posterior oropharynx normal and Yes tonsils normal Neck Neck: Yes no lymphadenopathy and Yes supple Thyroid: Thyroid normal Resp Auscultation: clear to auscultation bilaterally, no rales and no wheezes Cardio Rate: regular rate Rhythm: regular rhythm Heart sounds: no murmurs GI Palpation (GI): Soft to palpation and nontender Auscultation: normal bowel sounds General: Yes no CVA tenderness Back/Spine/Pelvis Back: no CVA tenderness Thoracic/Lumbar Spine: lumbar spinal tenderness Skin Rashes: no rashes Extrem General: Yes no clubbing, cyanosis or edema (although he reports (+) swelling of his legs and feet at the end of the day) Right lower extremity: knee Details: tenderness and swelling (mild, at times) Office Procedures Flu Questionnaire Does the patient have a severe egg allergy?: No Immunizations Fluarix Triv [id number] (PF) 45 mcg (15 mcg x 3)/0.5 mL IM syringe Performing Provider: John Youngblood MD [facility] Documented (not given) by: ALEXY Castellanos on 07/30/24 11:09 Reason Not Given: Received Previously Results Reviewed Results Reviewed: Laboratory Tests 07/21/24 07/21/24 07:10 07:13 WBC 6.7 Hgb 15.7 Hct 46.8 Plt Count 231 Sodium 140 Potassium 3.9 Creatinine 0.95 Estimated GFR > 60 Fasting Glucose 101 H Calcium 10.0 D AST 44 H ALT 79 H B-Natriuretic Peptide 13 Triglycerides 176 H Cholesterol 164 LDL Cholesterol, Calc 96 HDL Cholesterol 33 L 25-OH Vitamin D Total 31.5 TSH 3.28 Ur Specific [place] 1.020 Urine Protein Trace Urine Glucose (UA) Negative Urine Blood Negative Urine Nitrite Negative Ur Leukocyte Esterase Negative Coding Level of Care Code Est Pt Level 4 (30585) Diagnoses Degeneration of intervertebral disc of lumbar region with discogenic back pain M51.360 Disc-related pain type: discogenic back pain only Elevated LFTs R79.89 Mixed hyperlipidemia E78.2 Vitamin D deficiency E55.9 Chondrocalcinosis M11.20 Benign prostatic hyperplasia (BPH) with urinary urgency N40.1; R39.15 Insomnia, unspecified type G47.00 Insomnia type: unspecified Obesity (BMI 30-39.9) E66.9 Assessment & Plan Assessment & Plan (1) Lumbar degenerative disc disease: Code(s): M51.36 - Other intervertebral disc degeneration, lumbar region Category: Medical Qualifiers: Disc-related pain type: discogenic back pain only Qualified Code(s): M51.360 - Other intervertebral disc degeneration, lumbar region with discogenic back pain only Plan: He has multilevel degenerative disc disease Lumbar spine MRI done in April 2021 revealed (+) severe L5-S1 spondylosis with [id number] bilateral foraminal narrowing; no central canal stenosis or focal disc protrusion were noted here. (+) left foraminal disc protrusion at the L3-L4 level with moderate encroachment but no visible nerve root impingement. There is a broad-based left foraminal/extraforaminal disc protrusion at the L4-L5 level mildly impressing upon the left L4 nerve root, with moderate right foraminal narrowing Reinforced activity and weight-lifting restrictions to avoid aggravating his back symptoms He was taking Gabapentin but he stopped taking Gabapentin recently as he states that he refused to pay more for something that he is being overcharged for He was also seeing pain management and had right L-4/5 TFESI earlier last year which he felt helped He has not seen pain management in over a year now and was advised to reach out to them to schedule a follow up appt with them JESSI but he has not done so yet - have again reminded him to try contacting pain management to schedule an appointment and he is advised to call us if a referral is needed (2) Elevated LFTs: Code(s): R79.89 - Other specified abnormal findings of blood chemistry Category: Medical Plan: Results of his labs done a couple of weekends ago reviewed and discussed with patient He is advised that his LFTs are still elevated on his recent labs - these are most likely due to hepatosteatosis and should improve with weight loss Have reminded him thay he should also avoid taking a lot of Tylenol or Tylenol- containing medications and also avoid alcohol, which he admits he drinks o ccasionally Will send him for abdominal US for further evaluation Will continue to monitor his LFTs regularly; will check his liver fibrosis panel with his next labs in 6 months for further evaluation (3) Mixed hyperlipidemia: Code(s): E78.2 - Mixed hyperlipidemia Category: Medical Plan: Results of his labs done a couple of weekends ago reviewed and discussed with patient He is advised that his serum triglyceride level was still slightly elevated at 176 mg/dl on his recent labs Reinforced low cholesterol diet Will recheck his labs and fasting lipids in 6 months for follow up (4) Vitamin D deficiency: Code(s): E55.9 - Vitamin D deficiency, unspecified Category: Medical Plan: Continue OTC Vitamin D3 1000 units QD (5) Chondrocalcinosis: Code(s): M11.20 - Other chondrocalcinosis, unspecified site Category: Medical Plan: Right knee x-rays done in March 2023 revealed (+) findings of chondrocalcinosis Will consider referring him to rheumatology for further management if his knee symptoms get worse (6) Benign prostatic hyperplasia (BPH) with urinary urgency: Code(s): N40.1 - Benign prostatic hyperplasia with lower urinary tract symptoms; R39.15 - Urgency of urination Category: Medical Plan: Discussed that his recent urinary symptoms are most likely due to BPH His PSA level was normal at 0.49 when last checked in September 2023 Will start him for now on Tamsulosin 0.4 mg Q HS Will refer him to urology for further evaluation and management (7) Insomnia: Code(s): G47.00 - Insomnia, unspecified Category: Medical Qualifiers: Insomnia type: unspecified Qualified Code(s): G47.00 - Insomnia, unspecified Plan: Sleep hygiene reinforced Recalls taking OTC Melatonin up to 10 mg in the past with no relief He declines offer to start him on any Rx for sleep at this time - states that he will call for Rx if he needs it (8) Obesity (BMI 30-39.9): Code(s): E66.9 - Obesity, unspecified Category: Medical Plan: Reinforced diet/exercise as tolerated/lose weight Plan Follow up in 6 months Orders: Orders Influenza [id number] Immunization Today Z23 - Encounter for immunization US abdomen complete Today R79.89 - Other specified abnormal findings of blood chemistry Lipid Panel 6 Months E78.00 - Pure hypercholesterolemia, unspecified Complete Blood Count Auto Diff 6 Months D64.9 - Anemia, unspecified Comprehensive [place]. Panel Fast 6 Months E78.00 - Pure hypercholesterolemia, unspecified Liver Fibrosis Pnl 6 Months R79.89 - Other specified abnormal findings of blood chemistry Hepatitis A,B,C Profile 6 Months R79.89 - Other specified abnormal findings of blood chemistry Gamma Glutamyl Transpeptidase 6 Months R79.89 - Other specified abnormal findings of blood chemistry UA CC w/rflx Micro + Cult 6 Months R30.0 - Dysuria TSH reflex Free T4 6 Months E78.00 - Pure hypercholesterolemia, unspecified Vitamin D 25-OH Total 6 Months E55.9 - Vitamin D deficiency, unspecified Referrals Urology Referral N40.1 - Benign prostatic hyperplasia with lower urinary tract symptoms, R39.15 - Urgency of urination Medications: New tamsulosin 0.4 mg PO BEDTIME 90 days 90 caps 1RF N40.1 - Benign prostatic hyperplasia with lower urinary tract symptoms, R35.1 - Nocturia tamsulosin 0.4 mg PO BEDTIME 90 days 90 caps 1RF N40.1 - Benign prostatic hyperplasia with lower urinary tract symptoms, R35.1 - Nocturia
== END 2024-07-30 11:45 | disposition home or self-care (01) ==
PROVIDERS: PCP Internal Medicine; Visit Provider Internal Medicine
DX: E78.2 Mixed hyperlipidemia (principal); M51.360 Other intervertebral disc degeneration, lumbar region with discogenic back pain only; E66.812 Obesity, class 2; Z68.35 Body mass index [BMI] 35.0-35.9, adult; E55.9 Vitamin D deficiency, unspecified; M11.20 Other chondrocalcinosis, unspecified site; N40.1 Benign prostatic hyperplasia with lower urinary tract symptoms; R39.15 Urgency of urination; G47.00 Insomnia, unspecified

== ENCOUNTER → 2024-07-30 10:43 | Outpatient (BNVA) | payer MEDICARE, SELFPAY | PROVIDERS: PCP Internal Medicine; Visit Provider Internal Medicine | DX: M51.360 Other intervertebral disc degeneration, lumbar region with discogenic back pain only (principal); R79.89 Other specified abnormal findings of blood chemistry; E78.2 Mixed hyperlipidemia; E55.9 Vitamin D deficiency, unspecified; M11.20 Other chondrocalcinosis, unspecified site; N40.1 Benign prostatic hyperplasia with lower urinary tract symptoms; R39.15 Urgency of urination; G47.00 Insomnia, unspecified; E66.9 Obesity, unspecified; Z68.35 Body mass index [BMI] 35.0-35.9, adult; Z71.3 Dietary counseling and surveillance | CPT/HCPCS: 90471; 96127; 99212 ==

== ENCOUNTER 2024-10-24 07:47 | Outpatient (REF) | payer MEDICARE, SELFPAY ==
--- NOTE | ~2024-10-24 | US_ITS ---
EXAMINATION: US ABDOMEN HISTORY: R79.89 - Other specified abnormal findings of blood chemistry TECHNIQUE: Real-time grayscale ultrasound imaging of the abdomen was performed and images were reviewed. COMPARISON: There are no prior studies for comparison. FINDINGS: Liver: The liver is enlarged and demonstrates increased echotexture, consistent with steatosis. No focal mass or intrahepatic biliary ductal dilatation is identified. There is normal hepatopedal flow in the portal vein. Gallbladder and biliary tree: The gallbladder is unremarkable, without evidence of calculi, wall thickening, or pericholecystic fluid. There is no sonographic Gordon sign. The common bile duct is normal in caliber measuring 3 mm. Kidneys: The right kidney measures 11.9 cm in length. The left kidney measures 11.0 cm in length. The kidneys are unremarkable, without evidence of masses, hydronephrosis, or calculi. Pancreas: The pancreatic head, neck, and body are unremarkable. The pancreatic tail is obscured by bowel gas. Spleen: The spleen is normal in size and contour, measuring 11.0 cm in length. Abdominal aorta and inferior vena cava: The visualized portions of the abdominal aorta and inferior vena cava are normal in caliber. There is no free fluid in the abdomen. US/US abdomen complete IMPRESSION: Hepatomegaly and hepatic steatosis. Electronically signed by: Tyree Rolon MD 10/24/2024 03:20 PM [facility]
== END 2024-10-24 07:48 | disposition home or self-care (01) ==
LOC: HO.US 07:47
PROVIDERS: PCP Internal Medicine; Visit Provider Internal Medicine
DX: R79.89 Other specified abnormal findings of blood chemistry (principal)
CPT/HCPCS: 76700

== ENCOUNTER → 2024-10-24 07:49 | Outpatient (BNV) | payer MEDICARE, SELFPAY | PROVIDERS: PCP Internal Medicine; Visit Provider Radiology Diagnostic Radiology | DX: K76.0 Fatty (change of) liver, not elsewhere classified (principal); R16.0 Hepatomegaly, not elsewhere classified | CPT/HCPCS: 76700 ==

== ENCOUNTER 2024-11-08 13:42 | Outpatient (AMB) | payer MEDICARE, SELFPAY ==
--- NOTE | 2024-11-08 14:10 | A.OFFVIS_ITS ---
Intake Visit Reasons: BPH/urinary urgency Intake Note: New Patient presents for initial visit for urgency and frequency Urology Medications: tamsulosin Blood Thinner: none PVR: 31ml's Bag Sealer Required: No Accompanied by: Spouse Allergies No Known Allergies Allergy (Mild, Verified 11/08/24 17:10) NKA Medication List - Last Reconciled 11/08/24 by CHAVEZ Peng tamsulosin 0.8 mg (2 x 0.4 mg) PO BEDTIME 90 days HPI Comments Details: Octavio is a very pleasant 69-year-old male patient of Dr. Youngblood who is accompanied by his significant other at today's office visit. He has a past medical history of vitamin-D deficiency, hyperlipidemia, ED, hemorrhoids, elevated LFTs, lumbar degenerative disc disease, obesity, insomnia, and fatty liver. Presents to the office today as a new patient for ongoing lower urinary tract symptoms. In discussion with the patient today he reports having followed up with his PCP in discussing episodes of urinary urgency and frequency he had been experiencing at which time he was started on 0.4 mg of Flomax. He reports noting improvement in urinary urgency and frequency with Flomax however does continue to experience episodes however they are less frequent. In review of patient's chart it appears abdominal ultrasound was performed. 11/03 notes bilateral kidneys are unremarkable without evidence of masses, hydronephrosis, or renal calculi. In review of patient's chart it appears PSAs are as follows: 09/29 0.3, 10/01 0.5 We discussed potential causes for lower urinary tract symptoms patient was experiencing. BERNADETTE offered however deferred. We discussed obtaining PSA for further assessment evaluation. We discussed bladder triggers/irritants. In office urinalysis results reviewed with the patient today. PVR 31 mL. [facility] Medical History Benign prostatic hyperplasia (BPH) with urinary urgency Chondrocalcinosis Vitamin D deficiency Mixed hyperlipidemia Paresthesia of both lower extremities GERD without esophagitis Erectile dysfunction Hemorrhoids Elevated LFTs Lumbar degenerative disc disease Insomnia Obesity (BMI 30-39.9) Fatty liver Surgical History H/O colonoscopy Hx of circumcision Family History Father No problems noted. 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 Cognitive needs: No Hearing needs: No Vision needs: No Review of Systems Const Reports no additional complaints Eyes Reports no additional complaints ENT Reports no additional complaints Card Reports as per HPI Resp Reports no additional complaints GI Reports as per HPI Reports as per HPI Musc Reports as per HPI Neuro Reports as per HPI Psych Reports no additional complaints Endo Reports no additional complaints Neeraj/Lymph Reports no additional complaints Aller/Immun Reports no additional complaints Physical Exam Const General: cooperative, healthy appearing, comfortable, no acute distress, well developed, alert and awake Orientation/consciousness: patient oriented x3 Limitations: no limitations HEENT Head: Yes normal to inspection, Yes normocephalic and Yes atraumatic Ears: hearing grossly normal bilaterally Eyes General: appearance normal, both eyes and all related structures Neck Neck: Yes normal visual inspection and Yes trachea midline Chest Chest palpation & inspection: normal inspection of the chest Resp Effort & Inspection: normal respiratory effort and able to speak in complete sentences Cardio Rate: regular rate GI Inspection: Yes normal to inspection General: Yes no CVA tenderness Back/Spine/Pelvis Back: no CVA tenderness Skin General skin exam: no rashes or lesions noted Neuro General: patient oriented x3 Extrem General: Yes normal to inspection Psych Appearance: grossly normal and well kempt Mental Status: mental status grossly normal Speech and movement: Normal speech and movement present and Clear speech present Affect: normal affect Attitude: cooperative Thought process: Normal thought process present Thought content: Normal thought content present Insight: Fair insight present (Psych) Judgement: Fair judgement present (Psych) Office Procedures Post Void Residual Post Residual Void Post Void Residual (PVR): 31 [id number] Void Residual by ultrasound Results AMB Urinalysis, Automated UA Leukoctes 0 Vince/uL Last Edit by Rubi Jack on 11/08/24 14:24 UA Nitrite Last Edit by Rubi Jack on 11/08/24 14:24 UA Urobilinogen 0.2 mg/dL Last Edit by Rubi Jack on 11/08/24 14:24 UA Protein 15 mg/dL Last Edit by Tripvistozahra [email or web address] on 11/08/24 14:24 UA pH 6.0 Last Edit by Coskatajus on 11/08/24 14:24 UA Blood 0 Gabe/uL Last Edit by Coskatajus on 11/08/24 14:24 UA Specific [place] 1.020 Last Edit by Cangradeyeyo [email or web address] on 11/08/24 14:24 UA Ketone Last Edit by Cangradeyeyo [email or web address] on 11/08/24 14:24 UA Bilirubin 0 mg/dL Last Edit by Cangradeyeyo [email or web address] on 11/08/24 14:24 UA Glucose 0 mg/dL Last Edit by Cangradeyeyo [email or web address] on 11/08/24 14:24 Results Reviewed Results Reviewed: Laboratory Last Values Urine pH (Auto) 6.0 11/08/24 14:23 Specific [place] (Auto) 1.020 11/08/24 14:23 Urine Protein (Auto) 15 mg/dL 11/08/24 14:23 Glucose (UA)(Auto) 0 mg/dL 11/08/24 14:23 Urine Blood (Auto) 0 Gabe/uL 11/08/24 14:23 Urine Bilirubin (Auto) 0 mg/dL 11/08/24 14:23 Urine Urobilinogen (Auto) 0.2 mg/dL 11/08/24 14:23 Leukocyte Esterase (Auto) 0 Vince/uL 11/08/24 14:23 Assessment & Plan Assessment & Plan (1) Benign prostatic hyperplasia (BPH) with urinary urgency: Code(s): N40.1 - Benign prostatic hyperplasia with lower urinary tract symptoms; R39.15 - Urgency of urination Category: Medical (2) Lower urinary tract symptoms: Code(s): R39.9 - Unspecified symptoms and signs involving the genitourinary system Category: Medical (3) Urinary urgency: Code(s): R39.15 - Urgency of urination Category: Medical (4) Urinary frequency: Code(s): R35.0 - Frequency of micturition Category: Medical Plan In office urinalysis results reviewed with the patient today; as noted above. PVR 31 mL. Continue Flomax however will increase to 0.8 mg at bedtime. We discussed at length potential causes of lower urinary tract symptoms patient was experiencing as well as further workup in risks and benefits of these interventions. Will obtain PSA for further assessment evaluation. BERNADETTE offered however deferred. We discussed bladder triggers/irritants. Follow-up in 1-3 months with lab to be completed prior; or sooner with any issues, concerns, and or questions. Orders: Orders AMB Urinalysis Automated Today Z13.9 - Encounter for screening, unspecified AMB Post Void Residual by ultrasound Today N40.1 - Benign prostatic hyperplasia with lower urinary tract symptoms, R39.15 - Urgency of urination Prostate Specific Antigen Today N40.1 - Benign prostatic hyperplasia with lower urinary tract symptoms, R39.15 - Urgency of urination Medications: Changed From tamsulosin 0.4 mg PO BEDTIME 90 caps 1RF 90 days N40.1 - Benign prostatic hyperplasia with lower urinary tract symptoms, R35.1 - Nocturia To tamsulosin 0.8 mg (2 x 0.4 mg) PO BEDTIME 180 caps 1RF 90 days N40.1 - Benign prostatic hyperplasia with lower urinary tract symptoms, R35.1 - Nocturia Patient Instructions: The patient had an opportunity to ask questions regarding the treatment plan. All questions were answered. Physical exam, labs, and imaging were discussed and reviewed in detail. As well as risks, benefits, and discussion of treatment choices. No major barriers to understanding were identified. The patient expressed understanding and agreement with the above treatment plan. The patient was made aware they should contact our office by phone for worsening of their current condition, the appearance of new symptoms, or with any questions or concerns. Compliance is encouraged with any medications and follow up testing that is ordered. It is a privilege to be allowed the opportunity to participate in? your urological care.? Again, if you have any questions or concerns If you have any questions or concerns please do not hesitate to contact me. The office is [phone]. This note is constructed using voice recognition software. While every effort has been made to ensure accuracy anatomy professor errors may have been included. Yours sincerely, PAT Peng-GABRIELE Coding Level of Care Code New Pt Level 3 (78778) Diagnoses Benign prostatic hyperplasia (BPH) with urinary urgency N40.1; R39.15 Lower urinary tract symptoms R39.9 Urinary urgency R39.15 Urinary frequency R35.0 CPT Codes Post Residual Void - PVR CPT Code: 87882-Chly Void Residual by ultrasound ([id number])
--- OUTSIDE RECORDS SUMMARY | 2024-11-08 17:34 | XMS_ITS | Clinical Summary ---
Author Organization [facility] it Address [address] [place] [address] Care Team Providers Care Knitting Machine Operator Name Role Phone Todd Marcos MD Primary Care Provider [phone] Surgical History Surgery Date Site/Laterality Comments CIRCUMCISION, PRIMARY 2010 PROCEDURE: HISTORICAL CIRCUMCISION Medical History Medical History Date Comments Elevated ALT measurement 04/10/2018 DX:Elev ated ALT measurement Family History Medical History Relation Name Comments Hypertension Brother 1 No Known Problems Brother 2 No Known Problems Brother 3 No Known Problems Brother 4 No Known Problems Father Other cancer Mother not sure what t ype Heart attack Sister 1 No Known Problems Sister 2 Colon cancer Neg Hx Prostate cancer Neg Hx Relation Name Status Comments Brother 1 Alive Brother 2 Alive Brother 3 Alive Brother 4 Alive Father Mother Sister 1 Alive Sister 2 Alive Social History Tobacco Use Types Packs/Day Years Used Date Smoking Tobacco: Former Cigarettes Q uit: 10/10/2011 Smokeless Tobacco: Never Alcohol Use Standard Drinks/Week Comments Yes 3 (1 standard drink = 0.6 oz pur e alcohol) Sex and Gender Information Value Date Recorded Sex Assigned at Not on file Gender Identity Not on file Sexual Orientation Not on file Obstetrics History Plan of Treatment Health Maintenance Due Date Last Done Comments DTaP,Tdap,and Td Vaccines (1 - Tdap) 1976 Zoster Vaccines (1 of 2) 2007 Pneumococcal Vaccine: 65+ Ye ars (1 of 1 - PCV) 2022 COVID-19 Vaccine ( - 2023-2 5 season) 2024 Influenza Vaccine (#1) 2024 RSV Immunization Patients 60 + Years Old (1 - 1-dose 75+ series) 2032 HIB Vaccines Aged Out No longer eligi ble based on patient's age to complete this topic HPV Vaccines Aged Out No longer eligi ble based on patient's age to complete this topic Hepatitis A Vaccines Aged Out No long er eligible based on patient's age to complete this topic Hepatitis B Vaccines Aged Out No long er eligible based on patient's age to complete this topic IPV Vaccines Aged Out No longer eligi ble based on patient's age to complete this topic MMR Vaccines Aged Out No longer eligi ble based on patient's age to complete this topic Meningococcal ACWY Vaccine Aged Out N o longer eligible based on patient's age to complete this topic RSV Immunization Patients Un luis 20 months Aged Out No longer eligible b ased on patient's age to complete this topic Varicella Vaccines Aged Out No longer eligible based on patient's age to complete this topic Care Teams Knitting Machine Operator Relationship Specialty Start Date End Date Todd Marcos MD [address] [place] [id number] PCP - General Internal Medicine 06/23/15
== END 2024-11-08 14:53 | disposition home or self-care (01) ==
PROVIDERS: PCP Internal Medicine; Visit Provider Nurse Practitioner Family
DX: N40.1 Benign prostatic hyperplasia with lower urinary tract symptoms (principal); R39.15 Urgency of urination; R39.9 Unspecified symptoms and signs involving the genitourinary system; R35.0 Frequency of micturition; Z13.9 Encounter for screening, unspecified
CPT/HCPCS: 99203

== ENCOUNTER → 2024-11-08 13:42 | Outpatient (BNVA) | payer MEDICARE, SELFPAY | PROVIDERS: PCP Internal Medicine; Visit Provider Nurse Practitioner Family | DX: N40.1 Benign prostatic hyperplasia with lower urinary tract symptoms (principal); R39.15 Urgency of urination; R35.0 Frequency of micturition; R35.1 Nocturia; Z79.899 Other long term (current) drug therapy | CPT/HCPCS: 51798; 81003; 99202 ==

== ENCOUNTER 2025-01-28 09:45 | Outpatient (AMB) | payer MEDICARE, SELFPAY ==
--- NOTE | 2025-01-28 09:54 | A.OFFPC_ITS ---
Vital Signs 01/28/25 09:55 Height 5 ft 7 in Weight 227 lb 2 oz BMI 35.6 BP 118/78 Blood Pressure Location Lt brachial Position Sitting Pulse 68 Pulse Source Pulse Oximeter Pulse Oximetry (%) 98 Oxygen Delivery Method Room Air Intake Visit Reasons: chondrcalcinosis, hyperlipidemia, elevated LFTs Biological Scientist Required: No Accompanied by: Self / Same As Patient Allergies No Known Allergies Allergy (Mild, Verified 01/28/25 10:14) NKA Medication List - Last Reconciled 01/28/25 by John Youngblood MD tamsulosin 0.8 mg (2 x 0.4 mg) PO BEDTIME 90 days Tobacco use date assessed: 01/28/25 Fall risk assessment: No Falls in past year Last assessed Fall Risk: 01/28/25 Dental Screening Dental Screen Date: 01/28/25 Did you have a dental visit in the last 12 months?: Yes Did you have a dental problem in the last 6 months where you did not have access to dental care?: No Was dental information given to patient?: Patient has dentist HPI chondrcalcinosis, hyperlipidemia, elevated LFTs HPI Details Patient comes in today for his follow up visit States that he has been experiencing increased pain over his left elbow and on his left forearm on and off for over a month now and he has reportedly been taking a lot of OTC Advil lately just to get some relief from his pain He denies any recent injury or trauma to his left elbow or left arm Adds that he has been experiencing on and off episodes over the past few months wherein he feels like his heart is beating very fast Recalls that he would feel dizzy often when these episodes occur and there were times that he felt like he was going to pass out States that these tend to last for a few minutes after which they would gradually resolve/subside and that the last time he had these episodes was about a month ago He denies any headaches Denies any chest pains, no increased SOB although he states that he's had a recurrent non-productive cought for the past couple of months now Patient reports experiencing increased allergy symptoms lately; denies any sore throat or fever No nausea/vomiting, no abdominal pain No change in bowel habits noted He was not able to get his follow up labs done prior to his appointment today [facility] Medical History Benign prostatic hyperplasia (BPH) with urinary urgency Chondrocalcinosis Vitamin D deficiency Mixed hyperlipidemia Paresthesia of both lower extremities GERD without esophagitis Erectile dysfunction Hemorrhoids Elevated LFTs Lumbar degenerative disc disease Insomnia Obesity (BMI 30-39.9) Fatty liver Surgical History H/O colonoscopy Hx of circumcision Family History Father No problems noted. 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 1. Little interest or pleasure in doing things: not at all 2. Feeling down, depressed, or hopeless: not at all 3. Trouble falling or staying asleep, or sleeping too much: several days 4. Feeling tired or having little energy: several days 5. Poor appetite or overeating: not at all 6. Feeling bad about yourself - or that you are a failure or have let yourself or your family down: not at all 7. Trouble concentrating on things, such as reading the newspaper or watching television: not at all 8. Moving or speaking so slowly that other people could have noticed. Or the opposite - being so fidgety or restless that you have been moving around a lot more than usual: not at all 9. Thoughts that you would be better off or of hurting yourself in some way: not at all Total score: 2 Depression Screening Interpretation: Negative Depression Screening Done: Yes 87806 - PHQ-9 Billing: Yes Source: Developed by Drs. Tyree Zhu, Yumiko Holden, Victor Hugo Rodas and colleagues, with an educational ignacia from [employer]. Thrive Questionnaire Date Thrive assessed: 01/28/25 I am a: Patient What is your living situation today?: I have a steady place to live Within the past 12 months, did the food you bought not last and you didn't have the money to get more?: Never true Within the past 12 months, did you worry whether your food would run out before you got money to buy more?: Never true Do you have trouble paying for medicines?: No Do you have trouble getting transportation to medical appointments?: No Do you have trouble paying your heating and electricity bill?: No Do you have trouble taking care of your child, family member or friend?: No Do you have trouble with day-to-day activities such as bathing, preparing meals, shopping, managing finances, etc.?: No Are you currently unemployed and looking for a job?: No Are you interested in more education?: No Please select the resources that you would like help with: None Currently or been in a relationship where the following occur: No concerns reported THRIVE Score: 0 AUDIT C Alcohol Use Questionnaire (AUDIT-C) 1. How often do you have a drink containing alcohol?: Monthly or less 2. How many drinks containing alcohol do you have on a typical day when you are drinking?: 1 or 2 3. How often do you have six or more drinks on one occasion?: Less than monthly Total Score: 2 Score Reviewed/Action Taken: Yes YARIEL-7 AMB Questionnaire YARIEL-7 Date YARIEL - 7 assessed: 01/28/25 Feeling nervous, anxious, or on edge: 0 = Not at all Not being able to stop or control worryin = Not at all Worrying too much about different things: 0 = Not at all Trouble relaxin = Not at all Being so restless that it is hard to sit still: 0 = Not at all Becoming easily annoyed or irritable: 0 = Not at all Feeling afraid as if something awful might happen: 0 = Not at all Total YARIEL-7 score (0-4 normal; 5-9 mild; 10-14 moderate; 15-21 severe): 0 Source: Developed by Drs. Tyree Zhu, Victor Hugo Trejo and colleagues, with an educational ignacia from [employer]. Review of Systems Const Denies chills, Denies fatigue, Denies fever(s) and Denies headache(s) ENT Denies dysphagia, Reports dizziness (associated with sensations of rapid heart rate - see HPI for details), Denies otalgia, Denies headache(s), Denies neck pain, Denies odynophagia and Denies sore throat Card Denies chest pain, Reports rapid heart rate (on and off over the past few months - see HPI), Denies palpitations and Denies dyspnea Resp Denies chest congestion, Reports cough (recurrent, non-productive - ongoing for a couple of months) and Denies dyspnea GI Denies abdominal pain, Denies constipation, Denies dysphagia, Denies heartburn, Denies diarrhea, Denies nausea, Denies odynophagia and Denies vomiting Denies difficulty urinating, Denies dysuria, Reports nocturia, Reports urinary frequency and Reports urinary urgency (at times) Musc Reports back pain (chronic, over the lower back), Reports arthralgias (left elbow and left forearm and hand) and Denies neck pain Skin/Breast Denies rash Neuro Reports dizziness (associated with sensations of rapid heart rate - see HPI for details) and Denies headache(s) Endo Denies fatigue and Denies palpitations Neeraj/Lymph Details: (+) recurrent swelling of both legs and feet often at the end of the day Physical exam (Primary Care) Vital Signs: Last Vital Signs Pulse 68 01/28/25 09:55 BP 118/78 01/28/25 09:55 Pulse Ox 98 01/28/25 09:55 Oxygen Delivery Method Room Air 01/28/25 09:55 BMI result Body Mass Index 35.6 Tobacco/Smoking Status: Tobacco use Status Tobacco use date assessed 01/28/25 01/28/25 10:01 Patient Tobacco Use Status Former Tobacco user 01/28/25 10:01 Tobacco use type Cigarette 01/28/25 10:01 e-Cigarette/Vaping Use Never Used 01/28/25 10:01 PHQ-9: PHQ-9 Score PHQ-9: Total score 2 01/28/25 12:45 Depression Screening Interpretation: Negative Thrive Assessment: Date of Thrive Assessment Date Thrive assessed 01/28/25 01/28/25 10:01 Currently or been in a relationship where the following occur: No concerns reported Const General: no acute distress and alert HENMT Ears: TM's normal bilaterally and EAC's normal Throat: Yes posterior oropharynx normal and Yes tonsils normal Neck Neck: Yes supple and No lymphadenopathy Thyroid: Thyroid normal Resp Auscultation: clear to auscultation bilaterally, no rales and no wheezes Cardio Rate: regular rate Rhythm: regular rhythm Heart sounds: no murmurs GI Palpation (GI): Soft to palpation and nontender Auscultation: normal bowel sounds General: Yes no CVA tenderness Back/Spine/Pelvis Back: no CVA tenderness Thoracic/Lumbar Spine: lumbar spinal tenderness (mild) Skin Rashes: no rashes Extrem General: Yes no clubbing, cyanosis or edema (although he reports (+) swelling of his legs and feet at the end of the day) Left upper extremity: elbow/forearm Details: tenderness Location: of the olecranon, of the lateral epicondyle, of the proximal forearm and of the medial epicondyle; no swelling Right lower extremity: knee Details: tenderness and swelling (mild, at times) Coding Level of Care Code Est Pt Level 4 (65724) Complex EM visit Add On G2211 Diagnoses Cardiac arrhythmia, unspecified cardiac arrhythmia type I49.9 Arrhythmia type: unspecified cardiac arrhythmia Cough, unspecified type R05.9 Cough type: unspecified Left elbow pain M25.522 Allergic rhinitis, unspecified seasonality, unspecified trigger J30.9 Allergic rhinitis trigger: unspecified Allergic rhinitis seasonality: unspecified Degeneration of intervertebral disc of lumbar region with discogenic back pain M51.360 Disc-related pain type: discogenic back pain only Elevated LFTs R79.89 Mixed hyperlipidemia E78.2 Vitamin D deficiency E55.9 Chondrocalcinosis M11.20 Benign prostatic hyperplasia (BPH) with urinary urgency N40.1; R39.15 Insomnia, unspecified type G47.00 Insomnia type: unspecified Obesity (BMI 30-39.9) E66.9 Additional Codes PHQ-9 - 95131 - PHQ-9 Billing: Yes ([id number]) Assessment & Plan Assessment & Plan (1) Arrhythmia: Code(s): I49.9 - Cardiac arrhythmia, unspecified Category: Medical Qualifiers: Arrhythmia type: unspecified cardiac arrhythmia Qualified Code(s): I49.9 - Cardiac arrhythmia, unspecified Plan: Discussed with patient that his reported symptoms over the past few months may be due to atrial fibrillation (PAF) or other arrhythmias and these need to be further evaluated JESSI Have advised him to go and get his previously ordered labs done JESSI Will also send him for echocardiogram as well as a 14-day Holter monitor for further evaluation Will refer him as well to cardiology for further evaluation and management (2) Cough: Comment: non-productive Code(s): R05.9 - Cough, unspecified Category: Medical Qualifiers: Cough type: unspecified Qualified Code(s): R05.9 - Cough, unspecified Plan: Will send patient for chest x-rays for further evaluation but advised patient that this is likely due to his allergies (3) Left elbow pain: Code(s): M25.522 - Pain in left elbow Category: Medical Plan: Have advised patient that his left elbow pain is most likely due to tendinitis or bursitis Will send him for x-rays of the left elbow JESSI for further evaluation He is requesting for a cortisone injection into his elbow for relief if possible Will go ahead and refer him to orthopedics for consideration for cortisone injection into his left elbow if appropriate (4) Allergic rhinitis: Code(s): J30.9 - Allergic rhinitis, unspecified Category: Medical Qualifiers: Allergic rhinitis trigger: unspecified Allergic rhinitis seasonality: unspecified Qualified Code(s): J30.9 - Allergic rhinitis, unspecified Plan: Will start him on Cetirizine 10 mg QD PRN and Fluticasone 50 mcg nasal spray QD PRN (5) Lumbar degenerative disc disease: Code(s): M51.36 - Other intervertebral disc degeneration, lumbar region Category: Medical Qualifiers: Disc-related pain type: discogenic back pain only Qualified Code(s): M51.360 - Other intervertebral disc degeneration, lumbar region with discogenic back pain only Plan: He has multilevel degenerative disc disease Lumbar spine MRI done in April 2021 revealed (+) severe L5-S1 spondylosis with [id number] bilateral foraminal narrowing; no central canal stenosis or focal disc protrusion were noted here. (+) left foraminal disc protrusion at the L3-L4 level with moderate encroachment but no visible nerve root impingement. There is a broad-based left foraminal/extraforaminal disc protrusion at the L4-L5 level mildly impressing upon the left L4 nerve root, with moderate right foraminal narrowing Reinforced activity and weight-lifting restrictions to avoid aggravating his back symptoms He was taking Gabapentin previously but he stopped taking it recently as he states that he refused to pay more for something that he is being overcharged for He was also seeing pain management and had right L-4/5 TFESI earlier last year which he felt helped He has not seen pain management in over a year now and was advised to reach out to them to schedule a follow up appt [facility] but he has not done so yet (6) Elevated LFTs: Code(s): R79.89 - Other specified abnormal findings of blood chemistry Category: Medical Plan: His LFTs were still elevated on his labs done a few months ago - these are most likely due to hepatosteatosis and should improve with weight loss Have reminded patient that he should also avoid taking a lot of Tylenol or Tylenol-containing medications and also avoid alcohol, which he admits to drinking occasionally Abdominal US done in October 2024 revealed (+) hepatomegaly and hepatic steatosis Will continue to monitor his LFTs regularly; will also check his liver fibrosis panel with his labs for further evaluation (7) Mixed hyperlipidemia: Code(s): E78.2 - Mixed hyperlipidemia Category: Medical Plan: He was not able to get his follow up labs done prior to his appointment today - states that he will try to get these done JESSI He is advised that his serum triglyceride level was still slightly elevated at 176 mg/dl when they were last checked a few months ago Reinforced low cholesterol diet (8) Vitamin D deficiency: Code(s): E55.9 - Vitamin D deficiency, unspecified Category: Medical Plan: Continue OTC Vitamin D3 1000 units QD (9) Chondrocalcinosis: Code(s): M11.20 - Other chondrocalcinosis, unspecified site Category: Medical Plan: Right knee x-rays done in March 2023 revealed (+) findings of chondrocalcinosis Will consider referring him to rheumatology for further management if his knee symptoms get worse (10) Benign prostatic hyperplasia (BPH) with urinary urgency: Code(s): N40.1 - Benign prostatic hyperplasia with lower urinary tract symptoms; R39.15 - Urgency of urination Category: Medical Plan: Discussed that his recent urinary symptoms are most likely due to BPH His PSA level was normal at 0.49 when last checked in September 2023 Continue Tamsulosin 0.8 mg Q HS Follow up with urology as scheduled (11) Insomnia: Code(s): G47.00 - Insomnia, unspecified Category: Medical Qualifiers: Insomnia type: unspecified Qualified Code(s): G47.00 - Insomnia, unspecified Plan: Sleep hygiene reinforced Recalls taking OTC Melatonin up to 10 mg in the past with no relief He declines offer to start him on any Rx for sleep at this time - states that he will call for Rx if he needs it (12) Obesity (BMI 30-39.9): Code(s): E66.9 - Obesity, unspecified Category: Medical Plan: Reinforced diet/exercise as tolerated/lose weight Plan Follow up in 4 months Orders: Orders CA echo transthoracic complete Today I49.9 - Cardiac arrhythmia, unspecified ECG 14 day holter monitor Today I49.9 - Cardiac arrhythmia, unspecified XR chest 2V Today R05.9 - Cough, unspecified XR elbow LT min 3V Today M25.522 - Pain in left elbow Referrals Cardiology Referral I49.9 - Cardiac arrhythmia, unspecified Orthopedics Referral M25.522 - Pain in left elbow Medications: New cetirizine 10 mg PO DAILY 90 days PRN 90 tabs 3RF allergy symptoms fluticasone propionate 50 mcg/actuation administer into each nostril 2 sprays intranasal DAILY 30 days PRN 16 grams 5RF allergy symptoms Refilled tamsulosin 0.8 mg (2 x 0.4 mg) PO BEDTIME 90 days 180 caps 1RF N40.1 - Benign prostatic hyperplasia with lower urinary tract symptoms, R35.1 - Nocturia
[2025-01-28 09:55] VITALS: BP 118/78; PULSE 68; O2SAT 98; BMI 35.6
== END 2025-01-28 10:30 | disposition home or self-care (01) ==
LOC: HO.HMCH 09:45
PROVIDERS: PCP Internal Medicine; Visit Provider Internal Medicine
DX: I49.9 Cardiac arrhythmia, unspecified (principal); R05.9 Cough, unspecified; M25.522 Pain in left elbow; J30.9 Allergic rhinitis, unspecified; M51.360 Other intervertebral disc degeneration, lumbar region with discogenic back pain only; R79.89 Other specified abnormal findings of blood chemistry; E78.2 Mixed hyperlipidemia; E55.9 Vitamin D deficiency, unspecified; M11.20 Other chondrocalcinosis, unspecified site; N40.1 Benign prostatic hyperplasia with lower urinary tract symptoms; R39.15 Urgency of urination; G47.00 Insomnia, unspecified; E66.9 Obesity, unspecified

== ENCOUNTER → 2025-01-28 09:45 | Outpatient (BNVA) | payer MEDICARE, SELFPAY | PROVIDERS: PCP Internal Medicine; Visit Provider Internal Medicine | DX: I49.9 Cardiac arrhythmia, unspecified (principal); R05.9 Cough, unspecified; M25.522 Pain in left elbow; J30.9 Allergic rhinitis, unspecified; M51.360 Other intervertebral disc degeneration, lumbar region with discogenic back pain only; R79.89 Other specified abnormal findings of blood chemistry; E78.2 Mixed hyperlipidemia; E55.9 Vitamin D deficiency, unspecified; M11.20 Other chondrocalcinosis, unspecified site; N40.1 Benign prostatic hyperplasia with lower urinary tract symptoms; R39.15 Urgency of urination; G47.00 Insomnia, unspecified; E66.9 Obesity, unspecified; Z68.35 Body mass index [BMI] 35.0-35.9, adult; Z71.3 Dietary counseling and surveillance | CPT/HCPCS: 96127; 99212 ==

== ENCOUNTER 2025-01-29 07:00 | Outpatient (REF) | payer MEDICARE, SELFPAY ==
--- NOTE | ~2025-01-29 | XR_ITS ---
EXAMINATION: XR CHEST CLINICAL INFORMATION: R05.9 - Cough, unspecified COMPARISON: None available. TECHNIQUE: 2 views of the chest were obtained. FINDINGS: No consolidation, pleural effusion or pneumothorax. Cardiomediastinal silhouette size is normal. Multilevel thoracic and upper lumbar spondylosis. XR/XR chest 2V IMPRESSION: No acute airspace disease. Electronically signed by: Jonas Estrada MD 01/30/2025 06:19 AM EDT
--- NOTE | ~2025-01-29 | XR_ITS ---
EXAMINATION: XR ELBOW, LEFT CLINICAL INFORMATION: M25.522 - Pain in left elbow COMPARISON: None available. TECHNIQUE: AP, lateral, and oblique views of the left elbow. FINDINGS: No acute cortical disruption or malalignment. No lytic or blastic lesions. No subcutaneous emphysema. No gross joint effusion. XR/XR elbow LT min 3V IMPRESSION: No acute fracture or dislocation. Negative x-ray. Electronically signed by: Jonas Estrada MD 01/30/2025 06:20 AM EDT
--- OUTSIDE RECORDS SUMMARY | 2025-01-29 07:03 | XMS_ITS | Clinical Summary ---
Author Organization [facility] it Address [address] [place] [address] Care Team Providers Care Asphalt Roller Person Name Role Phone Todd Marcos MD Primary Care Provider [phone] Surgical History Surgery Date Site/Laterality Comments CIRCUMCISION, [...] Recorded Sex Assigned at Not on file Legal Sex Male 2:32 PM EST Gender Identity Not on file Sexual Orientation Not on file Obstetrics History Plan of Treatment Health Maintenance Due Date Last Done Comments DTaP,Tdap,and Td Vaccines (1 - Tdap) 1976 Pneumococcal Vaccine: 50+ Ye ars (1 of 1 - PCV) 2007 Zoster Vaccines (1 of 2) 2007 COVID-19 Vaccine ( - 2023-2 5 season) 2024 Influenza Vaccine (Season Ended) 2025 RSV Immunization Adult Patie nts (1 - 1-dose 75+ series) 2032 HIB [...] patient's age to complete this topic Meningococcal B Vaccine Aged Out No l onger eligible based on patient's age to complete this topic RSV Immunization Patients Un luis 20 months Aged Out No longer eligible b ased on patient's age to complete this topic Varicella Vaccines Aged Out No longer eligible based on patient's age to complete this topic Care Teams Asphalt Roller Person Relationship Specialty Start Date End Date Todd Marcos MD [address] [place] [address] PCP - General Internal Medicine 06/23/15
[2025-01-29 07:16] LABS: MANUAL DIFF FLAG NO
[2025-01-29 07:30] LABS: Basophils Absolute Auto 0.1 X10*3/uL (0.0-0.2); Basophils Percent Auto 0.9 % (0-2); Eosinophils Absolute Auto 0.3 X10*3/uL (0.0-0.4); Eosinophils Percent Auto 4.8 % (0-4); Hematocrit 43.7 % (42.0-52.0); Hemoglobin 15.1 g/dl (14.0-18.0); Imm Gran Abs Auto 0.03 X10*3/uL (0.00-0.03); Imm Gran Pct Auto 0.5 % (0.0-0.4); Lymphocytes Absolute Auto 1.8 X10*3/uL (1.2-4.9); Lymphocytes Percent Auto 31.3 % (20-40); Mean Corpuscular HGB Conc 34.6 g/dl (31.0-36.0); Mean Corpuscular Hemoglobin 30.6 pg (27.0-33.0); Mean Corpuscular Volume 88.5 fL (80.0-98.0); Mean Platelet Volume 9.7 fL (9.4-12.4); Monocytes Absolute Auto 0.7 X10*3/uL (0.1-1.2); Monocytes Percent Auto 11.7 % (2-11); Neutrophils Absolute Auto 2.9 x10*3/uL (2.0-8.3); Neutrophils Percent Auto 50.8 % (45-73); Platelet Count 222 X10*3/uL (160-400); Red Blood Count 4.94 X10*6/uL (4.60-5.80); Red Cell Distribution Width 13.2 % (11.0-16.0); White Blood Count 5.7 X10*3/uL (4.8-10.8)
[2025-01-29 08:09] LABS: Appearance Urine Clear; Color Urine Yellow; Glucose Urine UA Negative (Negative); Leukocyte Esterase Urine Negative (Negative); Nitrite Urine Negative (Negative); PH 5.5 (5.0-9.0); Specific Gravity - Urine 1.025 (1.005-1.025); UMIC TRIGGER UACC YES; Urine Blood Negative (Negative); Urine Ketones Negative (Negative); Urine Protein 30 (1+) mg/dL (Neg-Trace)
[2025-01-29 08:15] LABS: Bacteria Urine None Seen (None Seen); Hyaline Casts Urine 0-2 /LPF (0-2); RBC Urine 0-2 /HPF (0-2); Squamous Epithelial Cell Urine 0-2 /HPF (0-2); WBC Urine 0-5 /HPF (0-5)
[2025-01-29 08:32] LABS: Alanine Aminotransferase 64 U/L (0-40); Albumin Level 4.2 g/dL (3.5-5.0); Alkaline Phosphatase 72 U/L (39-117); Anion Gap 11 (12-20); Aspartate Amino Transferase 44 U/L (5-37); Bilirubin Total 1.1 mg/dL (0.0-1.0); Blood Urea Nitrogen 18 mg/dL (9-16); Calcium 9.1 mg/dL (8.4-10.2); Carbon Dioxide 27 mmol/L (22-29); Chloride 106 mmol/L (96-108); Cholesterol 162 mg/dL (<200); Estimated Glomerular Filt Rate > 60; Glucose Fasting 97 mg/dL (60-99); HDL Cholesterol 29 mg/dL (>40); LDL Cholesterol Calculated 97 mg/dL (<100); Potassium 3.9 mmol/L (3.3-5.1); Sodium 140 mmol/L (135-145); Total Protein 6.9 g/dL (6.5-8.0); Triglycerides 181 mg/dL (<150)
[2025-01-29 08:42] LABS: Gamma Glutamyl Transpeptidase 37 U/L (11-51); Prostate Specific Antigen 0.49 ng/mL (<0.05-4.0); TSH reflex Free T4 3.82 uIU/mL (0.32-4.0); Vitamin D 25-OH Total 22.2 ng/mL (>30)
[2025-01-29 13:26] LABS: HBS Num1 281.57 mIU/mL (0-7.99); HBc Num1 0.05 S/CO (0.00-0.79); HBsAGNum1 0.32 S/CO (0.00-0.99); Hepatitis A Antibody IgM 0.17 Index (0-0.79); Hepatitis B Core Antibody Nonreactive (Nonreactive); Hepatitis B Surface Antigen Negative (Negative); ~HepC Num1 0.12 S/CO (0.00-0.79); ~Hepatitis A Antibody IgM Nonreactive (Nonreactive); ~Hepatitis B Surface Antibody REACTIVE (Nonreactive); ~Hepatitis C Antibody Nonreactive (Nonreactive)
[2025-02-02 10:38] LABS: FIB-ALT 48 U/L (9-46); FIB-Alpha-2-Macroglobulin 323 mg/dL (106-279); FIB-Apolipoprotein A1 116 mg/dL (94-176); FIB-GGT 30 U/L (3-70); FIB-Haptoglobin 151 mg/dL (43-212); Liver Fibrosis Score 0.72; Liver Fibrosis Stage F3-F4; Nec Inflam Act Grade A1-A2; Nec Inflam Act Score 0.42; Reference ID 5454538
== END 2025-01-29 07:01 | disposition home or self-care (01) ==
LOC: HO.XRAY 07:00
PROVIDERS: Nurse Practitioner Family; PCP Internal Medicine; Visit Provider Internal Medicine
DX: R05.9 Cough, unspecified (principal); E78.00 Pure hypercholesterolemia, unspecified; D64.9 Anemia, unspecified; R79.89 Other specified abnormal findings of blood chemistry; E55.9 Vitamin D deficiency, unspecified; N40.1 Benign prostatic hyperplasia with lower urinary tract symptoms; R39.15 Urgency of urination; M25.522 Pain in left elbow; Z12.5 Encounter for screening for malignant neoplasm of prostate
CPT/HCPCS: 36415; 71046; 73080; 80053; 80061; 81001; 81003; 81596; 82306; 82977; 84153; 84443; 85025; 86704; 86706; 86709; 86803; 87340

== ENCOUNTER → 2025-01-29 07:19 | Outpatient (BNV) | payer MEDICARE, SELFPAY | PROVIDERS: PCP Internal Medicine; Visit Provider Radiology Diagnostic Radiology | DX: R05.9 Cough, unspecified (principal); M25.522 Pain in left elbow | CPT/HCPCS: 71046; 73080 ==

== ENCOUNTER → 2025-03-08 10:40 | Outpatient (REF) | payer MEDICARE, SELFPAY ==
--- NOTE | 2025-03-08 10:45 | CA_ITS ---
Transthoracic Echocardiogram Patient (Last, First, Middle): Octavio Mccullough M Gender: Male Date of : 1955 Age: 69 Procedure Date: 03/08/2025 Procedure Type: Transthoracic Echocardiogram Location: OP Height: 170.18 cm Weight: 99.79 kg BSA: 2.11 m2 Heart Rate: bpm BP: 130 / 82 mmHg Rn Perinatal: TO Referring MD: John Youngblood MD Software Program Manager: Dmitriy Schneider MD Symptoms: I49.9 - Cardiac arrhythmia, unspecified Study Quality: Fair/Contrast ECG Rhythm: Sinus Conclusions: - 1. Normal LV ejection fraction of 60 65% 2. Cardiac valvular Dopplers within normal limits 3. Mildly dilated ascending aorta at 3.8 cm 4. Normal RV systolic pressure 5. No gross pericardial effusion Findings Procedure Information Contrast agent, definity, is being given per protocol without apparent complications. Left Ventricle Normal left ventricular size, thickness, and systolic function. The visually estimated ejection fraction is between 60-65%. Spectral Doppler is indicative of a normal filling pattern. Right Ventricle Normal right ventricular cavity size and systolic function. Atria The left atrium is likely dilated. Interatrial shunt cannot be excluded. The right atrium was not well visualized. Aortic Valve The aortic valve structure and function is likely normal. There is no aortic valve stenosis. There is no aortic valve regurgitation. Mitral Valve Likely normal mitral valve structure and function. There is trace mitral valve regurgitation. There is no mitral valve stenosis. Pulmonic Valve The pulmonic valve was not well visualized. Tricuspid Valve Likely normal tricuspid valve structure and function. There is trace tricuspid valve regurgitation. The right ventricular systolic pressure is normal. The right ventricular systolic pressure is 26 mmHg. Normal right atrial pressure. There is no evidence of pulmonary hypertension. Great Vessels The aorta was not well visualized. The pulmonary artery was not well visualized. There is mild dilatation of the ascending aorta measuring 3.80 cm. Venous The inferior vena cava is normal in size and collapses greater than 50% with inspiration. Pericardium/Pleural There is no evidence of pericardial effusion. Prior Study Comparison No prior study available for comparison. Measurements 2D Linear Measurements IVSd: 0.99 0.6-0.9/0.6-1.0 cm LVIDd: 4.48 3.9-5.3/4.2-5.9 cm LVIDd Index: 2.12 2.4-3.2/2.2-3.1 cm/m2 LVIDs: 3.12 2.0-3.6 cm LVPWd: 0.80 0.7-1.1 cm LA Diam: 2.60 2.7-3.8/3.0-4.0 cm LAIDs Index: 1.23 1.5-2.3 cm/m2 LV Mass: 163.45 67-162/88-224 g LV Mass Index: 77.47 43-95/49-115 g/m2 LVOT Diam: 2.50 3.0+(-)1.3 cm 2D Systolic Function EF 4C: 58.00 >55% EF 2C: 62.20 >55% EF BiP: 60.40 >55% Mitral Valve MV Pk E: 0.86 MV PK A: 0.67 MV Decel Time: 209.00 E/A: 1.30 E'Lateral: 8.16 E'Medial: 7.07 E/E' Med: 12.20 E/E' Lat: 10.60 PHT: 61.00 MVA PHT: 3.61 Decel Lajas: 4.12 Aortic Valve AoV Pk Sekou: 1.26 AoV Mn Sekou: 0.84 AoV VTI: 0.27 AoV Pk Grad: 6.00 Aov Mn Grad: 3.00 SEBLE Cont.VTI: 4.82 LVOT LVOT Pk Sekou: 1.21 LVOT Mn Sekou: 0.83 LVOT VTI: 0.27 LVOT Pk Grad: 6.00 LVOT Mn Grad: 3.00 LVOT Diam: 2.50 LVOT Area: 4.91 Diastolic Function MV Pk E: 0.86 MV Pk A: 0.67 E/A: 1.30 E'Medial: 7.07 E/E' Med: 12.20 E' Laterial: 8.16 E/E' Lat: 10.60 Right Ventricle TAPSE (mm): 24.80 TVS' Sekou: 11.50 Tricuspid Valve TR Pk Sekou: 2.39 TR Pk Grad: 23.00 RA Press: 3.00 RVSP: 26.00 Great Vessels Aorta Sinus of Valsalva: 4.05 2.0-3.5 cm Ao Asc: 3.80 2.1-3.4 cm Updated in Other Vendor System with Status of Final Dmitriy Schneider MD electronically signed on 03/08/2025 12:43:23 PM with status of Final
--- OUTSIDE RECORDS SUMMARY | 2025-03-08 11:24 | XMS_ITS | Clinical Summary ---
Author Organization [facility] it Address [address] [place] [address] Care Team Providers Care Painter Apprentice Name Role Phone Todd Marcos MD Primary Care Provider [phone] Surgical History Surgery Date Site/Laterality Comments CIRCUMCISION, [...] age to complete this topic Care Teams Painter Apprentice Relationship Specialty Start Date End Date Todd Marcos MD [address] [place] [address] PCP - General Internal Medicine 06/23/15
== END ==
LOC: HO.CARD 10:40
PROVIDERS: PCP Internal Medicine; Visit Provider Internal Medicine
DX: I48.0 Paroxysmal atrial fibrillation (principal); I49.9 Cardiac arrhythmia, unspecified
CPT/HCPCS: 93246; 93306; Q9957

== ENCOUNTER → 2025-03-08 10:45 | Outpatient (BNV) | payer MEDICARE, SELFPAY | PROVIDERS: PCP Internal Medicine; Visit Provider Internal Medicine Cardiovascular Disease | DX: R94.31 Abnormal electrocardiogram [ECG] [EKG] (principal) | CPT/HCPCS: 93306 ==

== ENCOUNTER 2025-05-21 14:23 | Outpatient (AMB) | payer MEDICARE, SELFPAY ==
--- NOTE | 2025-05-21 14:41 | A.OFFVIS_ITS ---
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 Patient reports off and on pain for about 6 months. He states that his pain is on the ulnar and radial aspect of the elbow and it radiates up to his shoulder and down to his wrist. Patient noticed when he worse his watch made his pain worse and when he is not wearing it it gets better. Patient reports has some stiffness in his elbow. Patient hasn't tried any pain medication buit has tried menthol topical cream. 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 Mccullough is a 69-year-old right hand dominant male who presents to the office today accompanied by his for evaluation of left elbow pain. Patient reports off and on pain for about 6 months. Denies any injury or trauma to the elbow. He states that his pain is located on both sides of the elbow and points to the medial and lateral epicondyles. He also reports that his pain occasionally will radiate up to his shoulder and down to his wrist. Additionally, he reports that he has occasionally numbness and tingling in the middle, ring, and little fin gers. He reports that wearing his smart watch makes his pain worse. He feels he has developed some stiffness in the elbow. He has tried a topical menthol cream with little relief. [facility] Medical History Benign prostatic hyperplasia (BPH) with urinary urgency Chondrocalcinosis Vitamin D deficiency Mixed hyperlipidemia Paresthesia of both lower extremities GERD without esophagitis Erectile dysfunction Hemorrhoids Elevated LFTs Lumbar degenerative disc disease Insomnia Obesity (BMI 30-39.9) Fatty liver Surgical History H/O colonoscopy Hx of circumcision Family History Father No problems noted. 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 No ecchymosis erythema or edema. Mild tenderness to palpation over the medial and lateral epicondyles. No tenderness to the olecranon. Negative Tinels. Able to perform full flexion and extension. Pain at the lateral epicondyle with resisted wrist extension. Pain at the medial epicondyle with resisted wrist flexion. Reports occasional numbness and ting ling. Radial pulse intact. Psych Appearance: grossly normal Mental Status: mental status grossly normal Attitude: cooperative Assessment & Plan Assessment & Plan (1) Medial epicondylitis of left elbow: Code(s): M77.02 - Medial epicondylitis, left elbow Category: Medical (2) Lateral epicondylitis of left elbow: Code(s): M77.12 - Lateral epicondylitis, left elbow Category: Medical Plan Mr. Mccullough is a 69-year-old right hand dominant male who presents to the office today accompanied by his for evaluation of left elbow pain. Patient reports off and on pain for about 6 months. Denies any injury or trauma to the elbow. He states that his pain is located on both sides of the elbow and points to the medial and lateral epicondyles. He also reports that his pain occasionally will radiate up to his shoulder and down to his wrist. Additionally, he reports that he has occasionally numbness and tingling in the middle, ring, and little fingers. He reports that wearing his smart watch makes his pain worse. He feels he has developed some stiffness in the elbow. He has tried a topical menthol cream with little relief. While in the office today we discussed the management of medial and lateral epicondylitis with conservative treatment such as oral antiinflammatories, cortisone injection and physical therapy. Patient would like to defer on physical therapy and injection at this time. He is amenable to trial an oral an tiinflammatory. Diclofenac 75mg po q 12hrs prn pain was sent to the pharmacy. Additionally, the patient is experiencing symptoms associated with cubital tunnel. Therefore, I have placed an order for an EMG to further evaluate his symptoms. He will follow up with me after the EMG has been obtained, sooner if needed. Elbow LT min 3V 01/29/25 IMPRESSION: No acute fracture or dislocation. Negative x-ray. Medications: New diclofenac sodium 75 mg PO BID 60 tabs 0RF 30 days Coding Level of Care Code New Pt Level 3 (71274) Diagnoses Medial epicondylitis of left elbow M77.02 Lateral epicondylitis of left elbow M77.12
[2025-05-21 14:47] VITALS: BMI 34.9
--- OUTSIDE RECORDS SUMMARY | 2025-05-21 15:17 | XMS_ITS | Clinical Summary ---
Author Organization [facility] it Address [address] [place] [address] Care Team Providers Care Human Relations Manager Name Role Phone Todd Marcos MD Primary Care Provider [phone] Surgical History Surgery Date Site/Laterality Comments CIRCUMCISION, [...] Vaccine ( - 2023-2 5 season) 2024 Depression Screening 10/10/2024 Influenza Vaccine (#1) 2025 RSV Immunization Adult Patie nts (1 [...] age to complete this topic Care Teams Human Relations Manager Relationship Specialty Start Date End Date Todd Marcos MD [address] [place] [id number] PCP - General Internal Medicine 06/23/15
== END 2025-05-21 15:10 | disposition home or self-care (01) ==
LOC: HO.HOS 14:23
PROVIDERS: PCP Internal Medicine; Visit Provider Physician Assistant
DX: M77.02 Medial epicondylitis, left elbow (principal); M77.12 Lateral epicondylitis, left elbow
CPT/HCPCS: 99203

== ENCOUNTER → 2025-05-21 14:23 | Outpatient (BNVA) | payer MEDICARE, SELFPAY | PROVIDERS: PCP Internal Medicine; Visit Provider Physician Assistant | DX: M77.02 Medial epicondylitis, left elbow (principal); M77.12 Lateral epicondylitis, left elbow | CPT/HCPCS: 99202 ==

== ENCOUNTER 2025-06-11 09:48 | Outpatient (AMB) | payer MEDICARE, SELFPAY ==
--- NOTE | 2025-06-11 09:57 | A.OFFPC_ITS ---
Vital Signs 06/11/25 09:59 06/11/25 10:33 Height 5 ft 7 in Weight 223 lb BMI 34.9 BP 140/80 H 126/80 Blood Pressure Location Lt brachial Lt brachial Position Sitting Sitting Pulse 66 Pulse Source Pulse Oximeter Temp 97.3 F Temp Source Temporal Artery Scan Pulse Oximetry (%) 96 Oxygen Delivery Method Room Air Intake Visit Reasons: 4 Months f/u Intake Note: Patient is here to follow up on BPH, HLD, LDDD. Epic Kaleidoscope Analyst Required: No Pottery Decorator: Not Required per policy Accompanied by: Self / Same As Patient Allergies No Known Allergies Allergy (Mild, Verified 06/11/25 10:33) NKA Medication List - Last Reconciled 06/11/25 by John Youngblood MD cetirizine 10 mg PO DAILY PRN 90 days diclofenac sodium 75 mg PO BID 30 days fluticasone propionate 50 mcg/actuation 2 sprays intranasal DAILY PRN 30 days tamsulosin 0.8 mg (2 x 0.4 mg) PO BEDTIME 90 days Tobacco use date assessed: 06/11/25 Fall risk assessment: No Falls in past year Last assessed Fall Risk: 06/11/25 Dental Screening Dental Screen Date: 01/28/25 HPI 4 Months f/u HPI Details Patient comes in today for his follow up visit States that he feels okay He denies any headaches Denies any chest pains, no increased SOB States that he still has occasional brief episodes wherein it feels like his heart is beating very fast although they are not occurring as often as they were a few months ago He was sent for echocardiogram and Holter monitoring and he would like to know if these show any pertinent results No nausea/vomiting, no abdominal pain No change in bowel habits noted Adds that he was also seen buy orthopedics a few weeks ago for his elbow pain and he is being scheduled for an EMG for further evaluation He would also like to know how his labs done a few months ago came out [facility] Medical History Benign prostatic hyperplasia (BPH) with urinary urgency Chondrocalcinosis Vitamin D deficiency Mixed hyperlipidemia Paresthesia of both lower extremities GERD without esophagitis Erectile dysfunction Hemorrhoids Elevated LFTs Lumbar degenerative disc disease Insomnia Obesity (BMI 30-39.9) Fatty liver Surgical History H/O colonoscopy Hx of circumcision Family History Father No problems noted. 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 1. Little interest or pleasure in doing things: not at all 2. Feeling down, depressed, or hopeless: not at all 3. Trouble falling or staying asleep, or sleeping too much: several days 4. Feeling tired or having little energy: several days 5. Poor appetite or overeating: not at all 6. Feeling bad about yourself - or that you are a failure or have let yourself or your family down: not at all 7. Trouble concentrating on things, such as reading the newspaper or watching television: not at all 8. Moving or speaking so slowly that other people could have noticed. Or the opposite - being so fidgety or restless that you have been moving around a lot more than usual: not at all 9. Thoughts that you would be better off or of hurting yourself in some way: not at all Total score: 2 Depression Screening Interpretation: Negative Depression Screening Done: Yes 60197 - PHQ-9 Billing: Yes Source: Developed by Drs. Tyree Zhu, Yumiko Holden, Victor Hugo Rodas and colleagues, with an educational ignacia from [employer]. Thrive Questionnaire Date Thrive assessed: 01/28/25 I am a: Patient What is your living situation today?: I have a steady place to live Within the past 12 months, did the food you bought not last and you didn't have the money to get more?: Often true Within the past 12 months, did you worry whether your food would run out before you got money to buy more?: Never true Do you have trouble paying for medicines?: No Do you have trouble getting transportation to medical appointments?: No Do you have trouble paying your heating and electricity bill?: No Do you have trouble taking care of your child, family member or friend?: No Do you have trouble with day-to-day activities such as bathing, preparing meals, shopping, managing finances, etc.?: No Are you currently unemployed and looking for a job?: Yes Are you interested in more education?: No Please select the resources that you would like help with: None Currently or been in a relationship where the following occur: No concerns reported THRIVE Score: 1 AUDIT C Alcohol Use Questionnaire (AUDIT-C) 1. How often do you have a drink containing alcohol?: 2-4 times a month 2. How many drinks containing alcohol do you have on a typical day when you are drinking?: 1 or 2 3. How often do you have six or more drinks on one occasion?: Monthly Total Score: 4 Score Reviewed/Action Taken: Yes YARIEL-7 AMB Questionnaire YARIEL-7 Date YARIEL - 7 assessed: 01/28/25 Feeling nervous, anxious, or on edge: 0 = Not at all Not being able to stop or control worryin = Not at all Worrying too much about different things: 0 = Not at all Trouble relaxin = Not at all Being so restless that it is hard to sit still: 0 = Not at all Becoming easily annoyed or irritable: 0 = Not at all Feeling afraid as if something awful might happen: 0 = Not at all Total YARIEL-7 score (0-4 normal; 5-9 mild; 10-14 moderate; 15-21 severe): 0 Source: Developed by Drs. Tyree Zhu, Yumiko Holden, Victor Hugo Rodas and colleagues, with an educational ignacia from [employer]. Review of Systems Const Denies chills, Denies fatigue, Denies fever(s) and Denies headache(s) ENT Denies dysphagia, Reports dizziness (associated with sensations of rapid heart rate ), Denies otalgia, Denies headache(s), Denies neck pain, Denies odynophagia and Denies sore throat Card Denies chest pain, Reports rapid heart rate (on and off over the past few months but occurring less often lately), Denies palpitations and Denies dyspnea Resp Denies chest congestion, Denies cough and Denies dyspnea GI Denies abdominal pain, Denies constipation, Denies dysphagia, Denies heartburn, Denies diarrhea, Denies nausea, Denies odynophagia and Denies vomiting Denies difficulty urinating, Denies dysuria, Reports nocturia, Reports urinary frequency and Reports urinary urgency (at times) Musc Reports back pain (chronic, over the lower back), Reports arthralgias (left elbow and left forearm and hand) and Denies neck pain Skin/Breast Denies rash Neuro Reports dizziness (associated with sensations of rapid heart rate ) and Denies headache(s) Endo Denies fatigue and Denies palpitations Neeraj/Lymph Details: (+) recurrent swelling of both legs and feet often at the end of the day Physical exam (Primary Care) Vital Signs: Last Vital Signs Temp 97.3 F 06/11/25 09:59 Pulse 66 06/11/25 09:59 BP 126/80 06/11/25 10:33 Pulse Ox 96 06/11/25 09:59 Oxygen Delivery Method Room Air 06/11/25 09:59 BMI result Body Mass Index 34.9 Tobacco/Smoking Status: Tobacco use Status Tobacco use date assessed 06/11/25 06/11/25 10:03 Patient Tobacco Use Status Former Tobacco user 06/11/25 10:03 Tobacco use type Cigarette 06/11/25 10:03 e-Cigarette/Vaping Use Never Used 06/11/25 10:03 PHQ-9: PHQ-9 Score PHQ-9: Total score 2 06/11/25 10:35 Depression Screening Interpretation: Negative Thrive Assessment: Date of Thrive Assessment Date Thrive assessed 01/28/25 06/11/25 10:03 Currently or been in a relationship where the following occur: No concerns reported Const General: no acute distress and alert HENMT Throat: Yes posterior oropharynx normal and Yes tonsils normal Neck Neck: Yes supple and No lymphadenopathy Thyroid: Thyroid normal Resp Auscultation: clear to auscultation bilaterally, no rales and no wheezes Cardio Rate: regular rate Rhythm: regular rhythm Heart sounds: no murmurs GI Palpation (GI): Soft to palpation and nontender Auscultation: normal bowel sounds General: Yes no CVA tenderness Back/Spine/Pelvis Back: no CVA tenderness Thoracic/Lumbar Spine: lumbar spinal tenderness (mild) Skin Rashes: no rashes Extrem General: Yes no clubbing, cyanosis or edema (although he reports (+) swelling of his legs and feet at the end of the day) Left upper extremity: elbow/forearm Details: tenderness Location: of the olecranon, of the lateral epicondyle, of the proximal forearm and of the medial epicondyle; no swelling Right lower extremity: knee Details: tenderness and swelling (mild, at times) Results Reviewed Results Reviewed: Laboratory Tests 01/29/25 01/29/25 07:10 07:12 WBC 5.7 Hgb 15.1 Hct 43.7 Plt Count 222 Sodium 140 Potassium 3.9 Creatinine 0.93 Estimated GFR > 60 Fasting Glucose 97 Calcium 9.1 D GGT 37 AST 44 H ALT 64 H Liver Fibrosis Stage F3-F4 Triglycerides 181 H Cholesterol 162 LDL Cholesterol, Calc 97 HDL Cholesterol 29 L Prostate Specific Ag 0.49 25-OH Vitamin D Total 22.2 L TSH 3.82 Ur Specific [place] 1.025 Urine Protein 30 (1+) H Urine Glucose (UA) Negative Urine Blood Negative Urine Nitrite Negative Ur Leukocyte Esterase Negative Hep Bs Antigen Negative Hep Bs Antibody REACTIVE Hepatitis C Ab (EIA) Nonreactive Coding Level of Care Code Est Pt Level 4 (60081) Diagnoses Cardiac arrhythmia, unspecified cardiac arrhythmia type I49.9 Arrhythmia type: unspecified cardiac arrhythmia Left elbow pain M25.522 Allergic rhinitis, unspecified seasonality, unspecified trigger J30.9 Allergic rhinitis seasonality: unspecified Allergic rhinitis trigger: unspecified Degeneration of intervertebral disc of lumbar region with discogenic back pain M51.360 Disc-related pain type: discogenic back pain only Elevated LFTs R79.89 Mixed hyperlipidemia E78.2 Vitamin D deficiency E55.9 Chondrocalcinosis M11.20 Benign prostatic hyperplasia (BPH) with urinary urgency N40.1; R39.15 Insomnia, unspecified type G47.00 Insomnia type: unspecified Obesity (BMI 30-39.9) E66.9 Additional Codes PHQ-9 - 92706 - PHQ-9 Billing: Yes ([id number]) Assessment & Plan Assessment & Plan (1) Arrhythmia: Code(s): I49.9 - Cardiac arrhythmia, unspecified Category: Medical Qualifiers: Arrhythmia type: unspecified cardiac arrhythmia Qualified Code(s): I49.9 - Cardiac arrhythmia, unspecified Plan: Results of his labs done a few months ago reviewed and discussed with patient His echocardiogram Holter monitor done over the past couple of months came out normal - Holter revealed mostly sinus tachycardia correlating with his diary symptoms He was also referred to cardiology for further evaluation and management and he is scheduled to be seen by cardiology in a couple of weeks (2) Left elbow pain: Code(s): M25.522 - Pain in left elbow Category: Medical Plan: Have advised patient that his left elbow pain is most likely due to tendinitis or bursitis X-rays of the left elbow done back in January 2025 came out negative We referred him to orthopedics and he was seen by them last month - he is currently awaiting scheduling for his EMG for further evaluation Follow up with orthopedics as scheduled (3) Allergic rhinitis: Code(s): J30.9 - Allergic rhinitis, unspecified Category: Medical Qualifiers: Allergic rhinitis seasonality: unspecified Allergic rhinitis trigger: u nspecified Qualified Code(s): J30.9 - Allergic rhinitis, unspecified Plan: Continue Cetirizine 10 mg QD PRN and Fluticasone 50 mcg nasal spray QD PRN (4) Lumbar degenerative disc disease: Code(s): M51.36 - Other intervertebral disc degeneration, lumbar region Category: Medical Qualifiers: Disc-related pain type: discogenic back pain only Qualified Code(s): M51.360 - Other intervertebral disc degeneration, lumbar region with discogenic back pain only Plan: Lumbar spine MRI done in April 2021 revealed (+) severe L5-S1 spondylosis with [id number] bilateral foraminal narrowing; no central canal stenosis or focal disc protrusion were noted here. (+) left foraminal disc protrusion at the L3-L4 level with moderate encroachment but no visible nerve root impingement. There is a broad-based left foraminal/extraforaminal disc protrusion at the L4-L5 level mildly impressing upon the left L4 nerve root, with moderate right foraminal narrowing Reinforced activity and weight-lifting restrictions to avoid aggravating his back symptoms He was taking Gabapentin previously but he stopped taking it recently as he states that he refused to pay more for something that he is being overcharged for He was also seeing pain management and had right L-4/5 TFESI earlier last year which he felt helped He has not seen pain management in over a year now and was advised to reach out to them to schedule a follow up appt JESSI but he still has not done so yet (5) Elevated LFTs: Code(s): R79.89 - Other specified abnormal findings of blood chemistry Category: Medical Plan: His LFTs were still slightly elevated on his labs done back in January 2025 - these are most likely due to hepatosteatosis Have reminded patient again that he should also avoid taking a lot of Tylenol or Tylenol-containing medications and also avoid alcohol, which he admits to drinking occasionally Abdominal US done in October 2024 revealed (+) hepatomegaly and hepatic steatosis His hepatitis profile done a few months ago also came back all negative His liver fibrosis panel done recently came back concerning for advanced fibrosis, with a fibro test score of F3-F4 Will continue to monitor his LFTs regularly (6) Mixed hyperlipidemia: Code(s): E78.2 - Mixed hyperlipidemia Category: Medical Plan: Results of his labs done back in January 2025 reviewed and discussed with patient He is advised that his serum triglyceride level was still slightly elevated at 181 mg/dl; LDL cholesterol was acceptable at 97 mg/dl Reinforced low cholesterol diet Will have him recheck his labs in 4 months for follow up (7) Vitamin D deficiency: Code(s): E55.9 - Vitamin D deficiency, unspecified Category: Medical Plan: Continue OTC Vitamin D3 1000 units QD (8) Chondrocalcinosis: Code(s): M11.20 - Other chondrocalcinosis, unspecified site Category: Medical Plan: Right knee x-rays done in March 2023 revealed (+) findings of chondrocalcinosis Will consider referring him to rheumatology for further management if his knee symptoms get worse (9) Benign prostatic hyperplasia (BPH) with urinary urgency: Code(s): N40.1 - Benign prostatic hyperplasia with lower urinary tract symptoms; R39.15 - Urgency of urination Category: Medical Plan: Discussed that his recent urinary symptoms are most likely due to BPH His PSA level was normal at 0.49 when last checked in September 2023 Continue Tamsulosin 0.8 mg Q HS Follow up with urology as scheduled (10) Insomnia: Code(s): G47.00 - Insomnia, unspecified Category: Medical Qualifiers: Insomnia type: unspecified Qualified Code(s): G47.00 - Insomnia, unspecified Plan: Sleep hygiene reinforced Recalls taking OTC Melatonin up to 10 mg in the past with no relief He declines offer to start him on any Rx for sleep at this time - states that he will call for Rx if he needs it (11) Obesity (BMI 30-39.9): Code(s): E66.9 - Obesity, unspecified Category: Medical Plan: Reinforced diet/exercise as tolerated/lose weight Plan Follow up in 4 months He is also reminded to keep his appointment for his AWV in August 2025 Orders: Orders Complete Blood Count Auto Diff 4 Months D64.9 - Anemia, unspecified Hemoglobin A1c 4 Months R73.9 - Hyperglycemia, unspecified Comprehensive [place]. Panel Fast 4 Months E78.00 - Pure hypercholesterolemia, unspecified Lipid Panel 4 Months E78.00 - Pure hypercholesterolemia, unspecified TSH reflex Free T4 4 Months E78.00 - Pure hypercholesterolemia, unspecified UA CC w/rflx Micro + Cult 4 Months R30.0 - Dysuria Vitamin D 25-OH Total 4 Months E55.9 - Vitamin D deficiency, unspecified Vitamin B12 and Folate 4 Months E53.8 - Deficiency of other specified B group vitamins Gamma Glutamyl Transpeptidase 4 Months R79.89 - Other specified abnormal findings of blood chemistry
[2025-06-11 09:59] VITALS: BP 140/80; PULSE 66; TEMP 36.3; O2SAT 96; BMI 34.9
[2025-06-11 10:33] VITALS: BP 126/80
--- OUTSIDE RECORDS SUMMARY | 2025-06-11 10:59 | XMS_ITS | Clinical Summary ---
Author Organization [facility] it Address [address] [place] [address] Care Team Providers Care Stock Driver Name Role Phone Todd Marcos MD Primary Care Provider Surgical History Surgery Date Site/Laterality Comments CIRCUMCISION, [...] age to complete this topic Care Teams Stock Driver Relationship Specialty Start Date End Date Todd Marcos MD [address] [place] [id number] PCP - General Internal Medicine 06/23/15
== END 2025-06-11 10:38 | disposition home or self-care (01) ==
LOC: HO.HMCH 09:49
PROVIDERS: PCP Internal Medicine; Visit Provider Internal Medicine
DX: I49.9 Cardiac arrhythmia, unspecified (principal); M25.522 Pain in left elbow; E66.9 Obesity, unspecified; Z68.34 Body mass index [BMI] 34.0-34.9, adult; J30.9 Allergic rhinitis, unspecified; M51.360 Other intervertebral disc degeneration, lumbar region with discogenic back pain only; R79.89 Other specified abnormal findings of blood chemistry; E78.2 Mixed hyperlipidemia; E55.9 Vitamin D deficiency, unspecified; M11.20 Other chondrocalcinosis, unspecified site; N40.1 Benign prostatic hyperplasia with lower urinary tract symptoms; R39.15 Urgency of urination

== ENCOUNTER → 2025-06-11 09:48 | Outpatient (BNVA) | payer MEDICARE, SELFPAY | PROVIDERS: PCP Internal Medicine; Visit Provider Internal Medicine | DX: I49.9 Cardiac arrhythmia, unspecified (principal); M25.522 Pain in left elbow; J30.9 Allergic rhinitis, unspecified; M51.360 Other intervertebral disc degeneration, lumbar region with discogenic back pain only; R79.89 Other specified abnormal findings of blood chemistry; E78.2 Mixed hyperlipidemia; E55.9 Vitamin D deficiency, unspecified; M11.20 Other chondrocalcinosis, unspecified site; N40.1 Benign prostatic hyperplasia with lower urinary tract symptoms; R39.15 Urgency of urination; G47.00 Insomnia, unspecified; E66.9 Obesity, unspecified; Z68.34 Body mass index [BMI] 34.0-34.9, adult; Z71.3 Dietary counseling and surveillance; Z87.891 Personal history of nicotine dependence | CPT/HCPCS: 96127; 99212 ==

== ENCOUNTER 2025-06-24 09:47 | Outpatient (AMB) | payer MEDICARE, SELFPAY ==
[2025-06-24 09:51] VITALS: BP 124/80; PULSE 58; BMI 34.9
--- NOTE | 2025-06-24 09:51 | A.OFFVIS_ITS ---
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 He is a 69-year-old male with no significant prior cardiovascular history or significant risk factors. Patient says for couple years he has been having intermittent episodes of what he feels as burning in his chest with pressure in both his arms. Symptoms are not always exertional in nature or significantly related to exertion at all times. However taking be related with activity. Symptoms have become more frequent recently. He said 1 of the times the symptoms were quite severe and was associated with diaphoresis and felt like he was going to pass out and had rapid heart rate. He waited for 5 minutes and took his blood press ure in the blood pressure he said was in the upper 70s. He then waited for sometimes blood pressure remained low but then after some time the symptoms dissipated by itself. He had at that time chest burning as well as diaphoresis. He said at that time he had not super exerted himself but symptoms happened after he just walked into the house. That really concerned him. He subsequently had an echocardiogram which showed normal LV ejection fraction of 60 65% without wall motion abnormality without significant valvular abnormality with mildly dilated ascending aorta. He had a Holter monitor which showed 1 episode of 6 beat run of nonsustained VT. He did report 1 symptom during the monitoring which showed sinus tachycardia. He has not had any syncopal events. Denies any heart failure symptoms. He does not like to drink water he said that does not taste good to him. He drinks 1-2 beer here and there but not on a daily basis. Denies smoking. Does have family history of 2 sisters having heart attack in the 40s [facility] Medical History Benign prostatic hyperplasia (BPH) with urinary urgency Chondrocalcinosis Vitamin D deficiency Mixed hyperlipidemia Paresthesia of both lower extremities GERD without esophagitis Erectile dysfunction Hemorrhoids Elevated LFTs Lumbar degenerative disc disease Insomnia Obesity (BMI 30-39.9) Fatty liver Surgical History H/O colonoscopy Hx of circumcision Family History Father No problems noted. 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 Cognitive needs: No Hearing needs: No Vision needs: No Review of Systems Const Denies chills, Denies daytime sleepiness, Denies fatigue, Denies fever(s), Denies frequent falls, Denies poor appetite, Denies snoring, Denies stops breathing during sleep, Denies weakness, Denies weight gain and Denies weight loss Eyes Denies loss of vision ENT Denies dizziness and Denies hearing loss Card Reports chest pain, Denies claudication, Denies leg edema, Denies lightheade dness, Reports palpitations, Denies dyspnea, Denies dyspnea on exertion and Denies orthopnea Resp Denies cough, Denies excessive phlegm production, Denies dyspnea, Denies dyspnea on exertion, Denies snoring and Denies wheezing GI Denies abdominal pain, Denies hematochezia, Denies change in bowel habits, Denies nausea and Denies vomiting Denies dysuria and Denies urinary frequency Musc Denies arthralgias, Denies muscle weakness and Denies numbness Skin/Breast Denies nail changes and Denies rash Neuro Denies Abnormal speech present, Denies dizziness, Denies frequent falls, Denies loss of vision, Denies memory loss, Denies numbness and Denies weakness Psych Denies depression and Denies memory loss Endo Denies fatigue and Reports palpitations Neeraj/Lymph Reports easy bruising and Reports other (anemia) Aller/Immun Denies wheezing Physical Exam Vital Signs: Last Vital Signs Pulse 58 06/24/25 09:51 BP 124/80 06/24/25 09:51 BMI result Body Mass Index 34.9 Const General: cooperative, healthy appearing, comfortable, no acute distress, well developed, alert, awake, Physically active and well groomed Nutritional Appearance: well nourished and obese Orientation/consciousness: patient oriented x3 Limitations: no limitations HEENT Head: Yes normocephalic and Yes atraumatic Neck Neck: Yes trachea midline, Yes supple and Yes no JVD Resp Effort & Inspection: normal respiratory effort Auscultation: clear to auscultation bilaterally Cardio Jugular venous distension: no JVD Palpation: normal PMI Rate: regular rate Rhythm: regular rhythm Heart sounds: S1 normal heart sound present, S2 normal heart sound present, no click, no gallops, no murmurs and no rubs GI Auscultation: normal bowel sounds Skin General skin exam: no rashes or lesions noted Neuro General: patient oriented x3 and no focal motor deficits Speech: No Abnormal speech present Extrem General: Yes no clubbing, cyanosis or edema Psych Appearance: grossly normal Office Procedures EKG Details: EKG shows normal sinus rhythm nonspecific T-wave changes [address]-[id number], Complete Assessment & Plan Assessment & Plan (1) Chest discomfort: Code(s): R07.89 - Other chest pain Category: Medical Plan: Patient with symptoms of chest discomfort which has been gradually progressive increasing intensity with 1 of the episode causing significant diaphoresis drop in blood pressure. His symptoms are not classic for myocardial ischemia although highly concerning for the same. Given his age in his risk factors I w ould suggest him to undergo exercise myocardial perfusion imaging as soon as possible. Discussed with him with the need to rule out significant myocardial ischemia prior to proceeding with other workup. His Holter monitor did show sinus tachycardia during 1 of these episodes question he has autonomic dysfunction this would be less likely given he does not have any significant other risk factors. Although I have advised him to increase his fluid intake. Other possibilities include cardiac arrhythmias such as SVT and/or VT. Holter monitor did show evidence of nonsustained VT. If the stress test is normal and needs to be ruled out that no significant ventricular arrhythmias with exercise a present will pursue implantable loop recorder. This was discussed with him. Avoidance of stimulants was discussed. Advised to avoid strenuous exercise for now. Low-dose aspirin therapy is advised till we do further workup. Will follow up in the clinic after above-mentioned workup. Thank you for allowing me to partake in his care Coding Level of Care Code New Pt Level 4 (91557) Complex EM visit Add On G2211 Diagnoses Chest discomfort R07.89 CPT Codes EKG - CPT: 78509-[id number], Complete ([id number])
--- OUTSIDE RECORDS SUMMARY | 2025-06-24 12:03 | XMS_ITS | Clinical Summary ---
Author Organization [facility] it Address [address] [place] [address] Care Team Providers Care Timber Trimmer Name Role Phone Todd Marcos MD Primary Care Provider [phone] Surgical History Surgery Date Site/Laterality Comments CIRCUMCISION, [...] 2007 Zoster Vaccines (1 of 2) 2007 Depression Screening 10/10/2024 COVID-19 Vaccine ( - 2023-2 5 season) 2025 Influenza Vaccine (#1) 2025 RSV Immunization Adult [...] age to complete this topic Care Teams Timber Trimmer Relationship Specialty Start Date End Date Todd Marcos MD [address] [place] [id number] PCP - General Internal Medicine 06/23/15
== END 2025-06-24 10:25 | disposition home or self-care (01) ==
LOC: HO.HCS 09:47
PROVIDERS: PCP Internal Medicine; Visit Provider Internal Medicine Cardiovascular Disease
DX: R07.89 Other chest pain (principal)
CPT/HCPCS: 93010; 99214; G2211

== ENCOUNTER → 2025-06-24 09:47 | Outpatient (BNVA) | payer MEDICARE, SELFPAY | PROVIDERS: PCP Internal Medicine; Visit Provider Internal Medicine Cardiovascular Disease | DX: R00.2 Palpitations (principal); R07.89 Other chest pain; R42 Dizziness and giddiness | CPT/HCPCS: 93005; 99212 ==

== ENCOUNTER → 2025-07-12 08:15 | Outpatient (REF) | payer MEDICARE, SELFPAY ==
--- NOTE | ~2025-07-12 | NM_ITS ---
EXERCISE MYOCARDIAL PERFUSION STUDY INDICATION: Chest pain to evaluate for myocardial ischemia TECHNIQUE: The patient was brought in for an exercise perfusion study on 07/12/2025. Patient performed exercise as per Cornell protocol and was injected 30 mCi of sestamibi once target heart rate was achieved. Images were obtained using the SPECT gamma camera interlaced with the gating device. Images were obtained in supine position. Resting perfusion study was performed on 07/17/2025. Patient was administered 30 mCi of sestamibi intravenously at rest. Images were then obtained in supine position. Images obtained without without CT attenuation. Total DLP 88 mGy-cm. Images were processed with the software and compared side to side in short axis, horizontal long axis and vertical long axis views. FINDINGS: Raw images were reviewed The stress perfusion study showed nonattenuated images show mildly reduced uptake in the basal inferior wall of the LV myocardium. Remainder of the LV myocardium is normally perfused. Attenuated corrected images show normal uptake of radiotracer in all segments of the LV myocardium. The gated study shows normal LV systolic function with calculated LVEF of 71%. LV cavity is normal in size. The gated study shows normal systolic wall thickening and contraction of segments. Resting study shows no change in perfusion pattern compared to stress perfusion study. Gating at rest reveals normal systolic wall motion with ejection fraction at greater than 65%. The findings are consistent with normal myocardial perfusion. NM/NM cardiolite stress test IMPRESSION: 1. Myocardial perfusion imaging study shows normal myocardial perfusion. 2. Gated LVEF is 71%. 3. Transient ischemic dilatation not present. EKG revealed negative for ischemia. Electronically signed by: Dmitriy Schneider MD 07/17/2025 03:58 PM EDT
--- NOTE | 2025-07-12 08:19 | CA_ITS ---
Acquisition Time: 2025-07-12 08:40:17 Total Exercise Time: 00:07:31 Test Indications: CP,Palpitations Medications: CETERIZINE Protocol: JOSHUA Max HR: 137 BPM 89% of Pred: 153 BPM Max BP: 192/90 mmHG Max Work Load: 9.3 METS Exercise stress test with exercise 7 min 31 sec of Joshua protocol, achieving 89% MPHR, with mild sob, leg fatigue and request to stop, with isolated PACs, with hypertensive response to exercise: BP 134/88 at baseline and 190/92 just after peak exercise, without EKG changes meeting criteria for ischemia. In recovery his symptoms resolved and BP 138/94. Nuclear images pending. Test reviewed with Dr Rosado Referred By: Dmitriy Schneider Electronically Signed By: TIANNA GLOVER
--- OUTSIDE RECORDS SUMMARY | 2025-07-12 08:30 | XMS_ITS | Clinical Summary ---
Author Organization [facility] it Address [address] [place] [address] Care Team Providers Care Ballroom Dancer Name Role Phone Todd Marcos MD Primary Care Provider [phone] Surgical History Surgery Date Site/Laterality Comments CIRCUMCISION, [...] age to complete this topic Care Teams Ballroom Dancer Relationship Specialty Start Date End Date Todd Marcos MD [address] [place] [id number] PCP - General Internal Medicine 06/23/15
== END ==
LOC: HO.CARD 08:15
PROVIDERS: PCP Internal Medicine; Visit Provider Internal Medicine Cardiovascular Disease
DX: R07.89 Other chest pain (principal)
CPT/HCPCS: 78452; 93017; A9500

== ENCOUNTER → 2025-07-12 08:19 | Outpatient (BNV) | payer MEDICARE, SELFPAY | PROVIDERS: PCP Internal Medicine; Visit Provider Nurse Practitioner Family | DX: R07.9 Chest pain, unspecified (principal) | CPT/HCPCS: 78452; 93016; 93018 ==

== ENCOUNTER 2025-07-19 13:32 | Outpatient (REF) | payer MEDICARE, SELFPAY ==
--- NOTE | 2025-07-19 13:36 | EMG_ITS ---
Chief complaint: Left elbow pain, already getting better, denies numbness. Reason for referral: Evaluate for ulnar neuropathy Referred by: Haley MORRISSEY Procedure done: Left upper extremity NCS/EMG Precautions and/or limitations: None The limb temperature was monitored continuously and remained between 32-36 degrees C during the performance of the NCS. Nerve Conduction Studies Anti Sensory Summary Table ?Stim Site NR Onset (ms) Norm Onset (ms) Peak (ms) Norm Peak (ms) O-P Amp (?V) Norm O-P Amp Site1 Site2 Delta-0 (ms) Dist (cm) Sekou (m/s) Norm Sekou (m/s) Left Median Anti Sensory (2nd Digit) Wrist ? 2.7 3.5 <3.6 22.7 >10 Wrist 2nd Digit 2.7 14.0 52 Left Radial Anti Sensory (Thumb) Forearm ? 1.9 2.5 <3.1 15.3 Forearm Thumb 1.9 0.0 Left Ulnar Anti Sensory (5th Digit) Wrist ? 1.8 3.4 <3.7 19.8 >15.0 Wrist 5th Digit 1.8 14.0 78 Motor Summary Table ?Stim Site NR Onset (ms) Norm Onset (ms) O-P Amp (mV) Norm O-P Amp iAmp (mV) Amp (1st) (%) Site1 Site2 Delta-0 (ms) Dist (cm) Sekou (m/s) Norm Sekou (m/s) Left Median Motor (Abd Poll Brev) Wrist ? 3.7 <3.9 10.4 >4.5 13.1 100.0 Elbow Wrist 3.7 21.0 57 >45 Elbow ? 7.4 10.0 12.5 96.2 Left Ulnar Motor (Abd Dig Minimi) Wrist ? 3.0 <3.0 8.2 >5 9.8 100.0 B Elbow Wrist 3.3 18.0 55 >45 B Elbow ? 6.5 7.8 9.5 95.1 A Elbow B Elbow 1.7 10.0 59 >45 A Elbow ? 8.2 7.5 9.0 91.5 EMG ?Side Muscle Nerve Root Ins Act Fibs Psw Amp Dur Poly Recrt Int Pat Comment Left 1stDorInt Ulnar C8-T1 Nml Nml Nml Nml Nml 0 Nml Complete Left FlexCarpiUln Ulnar C8,T1 Nml Nml Nml Nml Nml 0 Nml Complete Left Biceps Musculocut C5-6 Nml Nml Nml Nml Nml 0 Nml Complete Left Triceps Radial C6-7-8 Nml Nml Nml Nml Nml 0 Nml Complete Left Deltoid Axillary C5-6 Nml Nml Nml Nml Nml 0 Nml Complete FINDINGS: All motor and sensory nerves tested showed normal latencies, amplitudes and conduction velocities. Concentric needle EMG was performed in selected muscles of the left upper extremity. Study did not reveal signs of electric abnormalities as shown in the table above. IMPRESSION: 1. This is a normal study. 2. There is no electrodiagnostic evidence for median neuropathy, ulnar neuropathy, brachial plexopathy, or cervical radiculopathy. Thank you for your kind referral. Lucia Mccollum MD, DANGELO Board Certified, [place] [employer] and [employer] (ABPMR) Board Certified, [place] [employer] Electrodiagnostic [employer] (ABEM) CODIN [id number] MTDD
== END 2025-07-19 13:33 | disposition home or self-care (01) ==
LOC: HO.NEURO 13:32
PROVIDERS: PCP Internal Medicine; Visit Provider Physician Assistant
DX: M77.02 Medial epicondylitis, left elbow (principal); M77.12 Lateral epicondylitis, left elbow; G56.22 Lesion of ulnar nerve, left upper limb
CPT/HCPCS: 95886; 95909

== ENCOUNTER → 2025-07-19 13:36 | Outpatient (BNV) | payer MEDICARE, SELFPAY | PROVIDERS: PCP Internal Medicine; Visit Provider Physical Medicine & Rehabilitation | DX: M77.02 Medial epicondylitis, left elbow (principal) | CPT/HCPCS: 95886; 95909 ==

== ENCOUNTER 2025-08-19 09:17 | Outpatient (AMB) | payer MEDICARE, SELFPAY ==
[2025-08-19 09:25] VITALS: BP 128/92; PULSE 77; TEMP 36.6; O2SAT 95; BMI 34.9
--- NOTE | 2025-08-19 09:26 | A.OFFVIS_ITS ---
Intake Vital Signs 08/19/25 09:25 Height 5 ft 7 in Weight 223 lb BMI 34.9 BP 128/92 H Blood Pressure Location Lt brachial Position Sitting Pulse 77 Pulse Source Pulse Oximeter Temp 97.8 F Temp Source Temporal Artery Scan Pulse Oximetry (%) 95 Oxygen Delivery Method Room Air Intake Visit Reasons: AWV Intake Note: New patient dx cardiac arrhythmia c/o burning and palpitations in chest for a few seconds Beater Tender Required: No Allergies sinus allergies Adverse Reaction (Severe, Uncoded 08/19/25 09:51) congestion Medication List - Last Reconciled 08/19/25 by MANUELA Claros cetirizine 10 mg PO DAILY PRN 90 days diclofenac sodium 75 mg PO BID fluticasone propionate 50 mcg/actuation 2 sprays intranasal DAILY PRN 30 days Do you need a note to return to daycare/school/sports/work: No HPI AWV HPI Details [place] of care was was viewed and updated today The patient has not fill out paperwork for healthcare proxy. A MOLST form was given an instructed to complete as soon as possible. The patient is a 70-year-old male presenting for a general health assessment and management of chronic conditions. He reports following with multiple specialists, including urology, gastroenterology for colonoscopies, and cardiology with Dr. Alcazar. He mentions having a device implanted in his chest and a previous stress test that was normal. The patient's primary complaint is pain that originates in his right hip/back area and radiates down the leg. He experiences associated tingling and hypersensitivity of the skin on the affected leg, as well as calf pain when walking or standing. A lumbar X-ray was performed in the past, around 2019 or 2020. His medical history includes hypothyroidism, for which he takes Synthroid. He denies any falls within the past year. He reports having a will but has not formally filled out paperwork for a healthcare proxy. HPI Comments History of Present Illness Details reviewed past medical history- yes reviewed surgical / hospitalization history- yes reviewed current medications- yes reviewed family history- yes home safety throw rugs? yes grab bars? yes-in the bathroom raised toilet seat? yes working smoke detectors? yes activities of daily living difficulty bathing or showering?no difficulty dressing? no difficulty using the toilet? no difficulty getting in and out of bed? no difficulty walking?no receives help from other person's with any of the above tasks? instrumental activities of daily living uses telephone - yes gets to place out of walking distance-yes go shopping for groceries- yes repairs own meals- yes does own minor home maintenance- yes does own laundry- yes does own housework-yes manages own money- yes currently takes medication- yes end of life planning discussed advanced directives- yes advanced directives on file? discussed wishes expressed in advanced directives. fall risk have you had any falls with injuries in the past year? no have you had 2 or more falls in the past year? no fall risk assessment: [facility] Medical History Benign prostatic hyperplasia (BPH) with urinary urgency Chondrocalcinosis Vitamin D deficiency Mixed hyperlipidemia Paresthesia of both lower extremities GERD without esophagitis Erectile dysfunction Hemorrhoids Elevated LFTs Lumbar degenerative disc disease Insomnia Obesity (BMI 30-39.9) Fatty liver Surgical History H/O colonoscopy Hx of circumcision Family History Father No problems noted. 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 Cognitive needs: No Hearing needs: No Vision needs: No Questionnaire Medicare Wellness Checkup [age] What gender do you identify with?: male During the past 4 weeks, how much have you been bothered by emotional problems such as feeling anxious, depressed, irritable, sad or downhearted, and blue?: not at all During the past 4 weeks, has your physical & emotional health limited your social activities with family, friends, neighbors, or groups?: not at all During the past 4 weeks, how much bodily pain have you generally had?: no pain During the past 4 weeks, was someone available to help you if you needed & wanted help?: yes, as much as I wanted During the past 4 weeks, what was the hardest physical activity you could do for at least 2 minutes?: moderate Can you get to places out of walking distance without help? (For eg., can you travel alone on buses, taxis or drive your car?): Yes Can you go shopping for groceries or clothes without someone's help?: Yes Can you prepare your own meals?: Yes Can you do your housework without help?: Yes Because of any health problems, do you need the help of another person with your personal care needs such as eating, bathing, dressing or getting around the house?: No Can you handle your own money without help?: Yes During the past 4 weeks, how would you rate your health in general?: very good During the past 4 weeks how have things been going for you?: pretty well Are you having difficulties driving your car?: no Do you always fasten your seat belt when you are in a car?: yes, usually During past 4 weeks, have you been bothered by the following: never: Falling or dizzy when standing up, Trouble eating well? and Problems using the telephone?, seldom: Teeth or denture problems? and sometimes: Tiredness or fatigue? Have you fallen 2 or more times in the past year?: No Are you afraid of falling?: No Are you a smoker?: no During the past 4 weeks, how many drinks of wine, beer, or other alcoholic beverages did you have?: 6-9 drinks per week Do you exercise for about 20 minutes 3 or more times a week?: no, I usually do not exercise this much Have you been given information to help with the following?: yes: Keeping track of your medications? and no: Hazards in your house that might hurt you? How often do you have trouble taking medicines the way you have been told to take them?: I do not have to take medicine How confident are you that you can control & manage most of your health problems?: very confident What is your race?: or origin or descent Mini Mental State Exam (MMSE) Orientation What is the (year) (season) (date) (day) (month)?: year, season, date, day and month Where are we (state) (county) (town or city) (hospital) (floor)?: state, county, town or city, hospital/clinic and floor Score Score: 10 Activity of Daily Living Bathing - sponge bath, tub bath or shower: receives no assistance (gets in/out by self, if usual bathing means Dressing - getting clothes from closets & drawers, including inner/outer garments & fasteners.: gets clothes & gets completely dressed without help Toileting - going to the 'toilet room' for urine/bowel elimination & cleaning self/arranging clothes: goes to toilet room, cleans self, arranges clothes without help Transfer: moves in & out of bed and chair without help (may use support object) Continence: controls urination/bowel movements completely by self Feeding: feeds self without help Total Score: 0 Information obtained from: patient Using telephone: independent Traveling: independent Shopping: independent Preparing meals: independent Housework: independent Taking medicine: independent Managing money: independent PHQ-9 Over the last 2 weeks, how often have you been bothered by any of the following problems? 1. Little interest or pleasure in doing things: not at all 2. Feeling down, depressed, or hopeless: not at all 3. Trouble falling or staying asleep, or sleeping too much: several days 4. Feeling tired or having little energy: several days 5. Poor appetite or overeating: not at all 6. Feeling bad about yourself - or that you are a failure or have let yourself or your family down: not at all 7. Trouble concentrating on things, such as reading the newspaper or watching television: not at all 8. Moving or speaking so slowly that other people could have noticed. Or the opposite - being so fidgety or restless that you have been moving around a lot more than usual: not at all 9. Thoughts that you would be better off or of hurting yourself in some way: not at all Total score: 2 Depression Screening Interpretation: Negative Depression Screening Done: Yes Source: Developed by Drs. Tyree Zhu, Yumiko Holden, Victor Hugo Rodas and colleagues, with an educational ignacia from [employer] Review of Systems Const Denies chills, Denies daytime sleepiness, Denies fatigue, Denies fever(s), Denies frequent falls, Denies poor appetite, Denies snoring, Denies stops breathing during sleep, Denies weakness, Denies weight gain and Denies weight loss Eyes Denies loss of vision ENT Denies dizziness and Denies hearing loss Card Reports chest pain, Denies claudication, Denies leg edema, Denies lightheadedness, Reports palpitations, Denies dyspnea, Denies dyspnea on exertion and Denies orthopnea Resp Denies cough, Denies excessive phlegm production, Denies dyspnea, Denies dyspnea on exertion, Denies snoring and Denies wheezing GI Denies abdominal pain, Denies hematochezia, Denies change in bowel habits, Denies nausea and Denies vomiting Denies dysuria and Denies urinary frequency Musc Reports back pain, Reports arthralgias (Right hip), Denies muscle weakness, Denies numbness and Reports radiating pain into limb (The right side down to lower extremity) Skin/Breast Denies nail changes and Denies rash Neuro Denies Abnormal speech present, Denies dizziness, Denies frequent falls, Denies loss of vision, Denies memory loss, Denies numbness and Denies weakness Psych Denies depression and Denies memory loss Endo Denies fatigue and Reports palpitations Neeraj/Lymph Reports easy bruising and Reports other (anemia) Aller/Immun Denies wheezing Physical Exam Vital Signs: Last Vital Signs Temp 97.8 F 08/19/25 09:25 Pulse 77 08/19/25 09:25 BP 128/92 H 08/19/25 09:25 Pulse Ox 95 08/19/25 09:25 Oxygen Delivery Method Room Air 08/19/25 09:25 BMI result Body Mass Index 34.9 Const Other: IPPE/AWV: Balance Romberg Yes . Tandem walk Yes. Walk and Turn Yes . Rise from sit to stand Yes . Vision Corrective lens yes Vision screen pass Hearing Whisper test pass . Urinary incont. no. EKG Not clinically necessary. Neuro Speech: No Abnormal speech present Assessment & Plan Assessment & Plan (1) Medicare annual wellness visit, subsequent: Code(s): Z00.00 - Encounter for general adult medical examination without abnormal findings Plan: Preventative guidelines reviewed with the patient. Encouraged to complete preordered labs. MOLST form given to fell down and return as soon as possible. (2) Arrhythmia: Code(s): I49.9 - Cardiac arrhythmia, unspecified Qualifiers: Arrhythmia type: unspecified cardiac arrhythmia Qualified Code(s): I49.9 - Cardiac arrhythmia, unspecified Plan: Results of his labs done a few months ago reviewed and discussed with patient His echocardiogram Holter monitor done over the past couple of months came out normal - Holter revealed mostly sinus tachycardia correlating with his diary symptoms The patient was evaluated by Cardiology, the patient had a normal stress test. A placement of an implantable loop recorder to rule out any significant ventricular arrhythmias was completed. Follow up with Cardiology as scheduled. (3) Left elbow pain: Code(s): M25.522 - Pain in left elbow Plan: Have advised patient that his left elbow pain is most likely due to tendinitis or bursitis X-rays of the left elbow done back in January 2025 came out negative We referred him to orthopedics and he was seen by them last month -An EMG was completed on 07/19/2025 with no electrodiagnostic evidence for median neuropathy, ulnar neuropathy, brachial plexopathy or cervical radiculopathy Follow up with orthopedics as scheduled (4) Allergic rhinitis: Code(s): J30.9 - Allergic rhinitis, unspecified Qualifiers: Allergic rhinitis trigger: unspecified Allergic rhinitis seasonality: unspecified Qualified Code(s): J30.9 - Allergic rhinitis, unspecified Plan: Limit exposure to allergens Air purifiers and dust filters Air conditioner in house, especially where sleeping Continue Cetirizine 10 mg QD PRN and Fluticasone 50 mcg nasal spray QD PRN (5) Lumbar degenerative disc disease: Code(s): M51.36 - Other intervertebral disc degeneration, lumbar region Plan: Lumbar spine MRI done in April 2021 revealed (+) severe L5-S1 spondylosis with [id number] bilateral foraminal narrowing; no central canal stenosis or focal disc protrusion were noted here. (+) left foraminal disc protrusion at the L3-L4 level with moderate encroachment but no visible nerve root impingement. There is a broad-based left foraminal/extraforaminal disc protrusion at the L4-L5 level mildly impressing upon the left L4 nerve root, with moderate right foraminal narrowing Reinforced activity and weight-lifting restrictions to avoid aggravating his back symptoms He was taking Gabapentin previously but he stopped taking it recently as he states that he refused to pay more for something that he is being overcharged for He was also seeing pain management and had right L-4/5 TFESI earlier last year which he felt helped Lumbar x-ray ordered to evaluate for any changes. Keep appointment with pain management. (6) Elevated LFTs: Code(s): R79.89 - Other specified abnormal findings of blood chemistry Plan: His LFTs were still slightly elevated on his labs done back in January 2025 - these are most likely due to hepatosteatosis Have reminded patient again that he should also avoid taking a lot of Tylenol or Tylenol-containing medications and also avoid alcohol, which he admits to drinking occasionally Abdominal US done in October 2024 revealed (+) hepatomegaly and hepatic steatosis His hepatitis profile done a few months ago also came back all negative His liver fibrosis panel done recently came back concerning for advanced fibrosis, with a fibro test score of F3-F4 Will continue to monitor his LFTs regularly (7) Mixed hyperlipidemia: Code(s): E78.2 - Mixed hyperlipidemia Plan: Results of his labs done back in January 2025 reviewed and discussed with patient He is advised that his serum triglyceride level was still slightly elevated at 181 mg/dl; LDL cholesterol was acceptable at 97 mg/dl. Patient was encouraged to complete preordered labs jay Reinforced low cholesterol diet Continue to monitor lipid panel (8) Vitamin D deficiency: Code(s): E55.9 - Vitamin D deficiency, unspecified Plan: Continue OTC Vitamin D3 1000 units QD (9) Chondrocalcinosis: Code(s): M11.20 - Other chondrocalcinosis, unspecified site Plan: Right knee x-rays done in March 2023 revealed (+) findings of chondrocalcinosis Will consider referring him to rheumatology for further management if his knee symptoms get worse (10) Benign prostatic hyperplasia (BPH) with urinary urgency: Code(s): N40.1 - Benign prostatic hyperplasia with lower urinary tract symptoms; R39.15 - Urgency of urination Plan: Discussed that his recent urinary symptoms are most likely due to BPH His PSA level was normal at 0.49 when last checked in September 2023 Continue Tamsulosin 0.8 mg Q HS Follow up with urology as scheduled (11) Insomnia: Code(s): G47.00 - Insomnia, unspecified Qualifiers: Insomnia type: unspecified Qualified Code(s): G47.00 - Insomnia, unspecified Plan: Sleep hygiene reinforced Recalls taking OTC Melatonin up to 10 mg in the past with no relief He declines offer to start him on any Rx for sleep at this time - states that he will call for Rx if he needs it (12) Obesity (BMI 30-39.9): Code(s): E66.9 - Obesity, unspecified Plan: Reinforced diet/exercise as tolerated/lose weight Orders: Orders XR lumbar spine 2-3V 08/21/25 M54.50 - Low back pain, unspecified Quality Reporting (2019) Depression/Bipolar (159/160/161/177) PHQ-9: Total score: 2 Coding Level of Care Code Medicare Subsequent (G0439) Diagnoses Medicare annual wellness visit, subsequent Z00.00 Cardiac arrhythmia, unspecified cardiac arrhythmia type I49.9 Arrhythmia type: unspecified cardiac arrhythmia Left elbow pain M25.522 Allergic rhinitis, unspecified seasonality, unspecified trigger J30.9 Allergic rhinitis trigger: unspecified Allergic rhinitis seasonality: unspecified Lumbar degenerative disc disease M51.36 Elevated LFTs R79.89 Mixed hyperlipidemia E78.2 Vitamin D deficiency E55.9 Chondrocalcinosis M11.20 Benign prostatic hyperplasia (BPH) with urinary urgency N40.1; R39.15 Insomnia, unspecified type G47.00 Insomnia type: unspecified Obesity (BMI 30-39.9) E66.9 Time Spent (min) 38
--- OUTSIDE RECORDS SUMMARY | 2025-08-19 10:06 | XMS_ITS | Clinical Summary ---
Author Organization [facility] ity Address [address] [place] [address] Care Team Providers Care Manager Metrology Name Role Phone Todd Marcos MD Primary Care Provider [phone] Surgical History Surgery Date Site/Laterality Comments CIRCUMCISION, [...] Years Used Date Smoking Tobacco: Former Cigarettes 0.4 Q uit: 10/10/2011 Smokeless Tobacco: Never Alcohol [...] age to complete this topic Care Teams Manager Metrology Relationship Specialty Start Date End Date Todd Marcos MD [address] [place] [id number] PCP - General Internal Medicine 06/23/15
== END 2025-08-19 10:17 | disposition home or self-care (01) ==
LOC: HO.HMCH 09:18
PROVIDERS: PCP Internal Medicine
DX: Z00.00 Encounter for general adult medical examination without abnormal findings (principal); I49.9 Cardiac arrhythmia, unspecified; M25.522 Pain in left elbow; J30.9 Allergic rhinitis, unspecified; M51.369 Other intervertebral disc degeneration, lumbar region without mention of lumbar back pain or lower extremity pain; R79.89 Other specified abnormal findings of blood chemistry; E78.2 Mixed hyperlipidemia; E55.9 Vitamin D deficiency, unspecified; M11.20 Other chondrocalcinosis, unspecified site; N40.1 Benign prostatic hyperplasia with lower urinary tract symptoms; R39.15 Urgency of urination; G47.00 Insomnia, unspecified; E66.9 Obesity, unspecified

== ENCOUNTER 2025-08-21 09:34 | Outpatient (REF) | payer MEDICARE, SELFPAY ==
--- NOTE | ~2025-08-21 | XR_ITS ---
EXAMINATION: XR LUMBOSACRAL SPINE CLINICAL INFORMATION: M54.50 - Low back pain, unspecified COMPARISON: Previous x-ray March 2021 TECHNIQUE: Three views of the lumbosacral spine. FINDINGS: Mild curvature of the lumbar sacral spine to the left. Bone alignment is otherwise normal. No fracture or dislocation. Degenerative disc disease and spondylosis at L5-S1 and L4-5. Lower lumbar spine facet arthritis. These findings are similar to March 2021 exam. XR/XR lumbar spine 2-3V IMPRESSION: Degenerative changes. Electronically signed by: Radha Torres MD 08/21/2025 09:56 AM EST
--- OUTSIDE RECORDS SUMMARY | 2025-08-21 10:51 | XMS_ITS | Clinical Summary ---
Author Organization [facility] ity Address [address] [place] [address] Care Team Providers Care Freight Conductor Name Role Phone Todd Marcos MD Primary Care Provider [phone] Surgical History Surgery Date Site/Laterality Comments CIRCUMCISION, [...] Depression Screening 10/10/2024 COVID-19 Vaccine ( - 2024-2 6 season) 2025 Influenza Vaccine (#1) 2025 RSV [...] age to complete this topic Care Teams Freight Conductor Relationship Specialty Start Date End Date Todd Marcos MD [address] [place] [id number] PCP - General Internal Medicine 06/23/15
== END 2025-08-21 09:35 | disposition home or self-care (01) ==
LOC: HO.XRAY 09:34
PROVIDERS: PCP Internal Medicine
DX: M54.50 Low back pain, unspecified (principal)
CPT/HCPCS: 72100

== ENCOUNTER → 2025-08-21 09:37 | Outpatient (BNV) | payer MEDICARE, SELFPAY | PROVIDERS: PCP Internal Medicine; Visit Provider Radiology Diagnostic Radiology | DX: M54.50 Low back pain, unspecified (principal) | CPT/HCPCS: 72100 ==